=== PATIENT | female | born 2000 | race Caucasian/White ===

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

== ENCOUNTER → 2019-04-23 | Outpatient (CLI) | payer BC ==
--- NOTE | 2019-04-23 15:32 | XR ---
EXAMINATION TYPE: XR chest 2V DATE OF EXAM: 04/23/2019 COMPARISON: Chest x-ray August 28, 2003. HISTORY: History of asthma with shortness of breath. TECHNIQUE: Frontal and lateral views of the chest are obtained. FINDINGS: There is no focal air space opacity, pleural effusion, or pneumothorax seen. The cardiac silhouette size is within normal limits. The osseous structures are intact. IMPRESSION: No acute cardiopulmonary process.
== END | disposition home or self-care (01) ==
LOC: RADXRMAIN 15:09
PROVIDERS: ATTEND Family Medicine
DX: J45.30 Mild persistent asthma, uncomplicated (principal)
CPT/HCPCS: 71046

== ENCOUNTER 2019-08-08 22:52 | Emergency (ER) | payer BC ==
--- NOTE | 2019-08-08 23:13 | ED ---
General Adult HPI - General Chief complaint: Shortness of Breath Stated complaint: AMANDA Time Seen by Provider: 08/08/19 23:12 Source: patient Mode of arrival: ambulatory Limitations: no limitations - History of Present Illness Initial comments: Patient is a 18-year-old female who presents the ER today with multiple vague complaints. Patient reports that she thinks she has a history of asthma because she used breathing treatments as a child. She states that she still has a daily inhaler as well as a rescue inhaler and has been compliant with these she also has a nebulizer at home. Patient states that today she felt like she was wheezing a little bit more the usual so she used her inhaler which she felt only improved her symptoms slightly and made her heart race. Patient also states that she receives Depogen injections for control and this is resulted and irregular. She reports she had an 8 day period in May and was given Provera which she has been taking daily since then. She states she has not had a period since then and has been sexually active so is concerned she may be . Patient also states that she's mostly up for work by 3 AM to get work on time and will need a work note because it's arty late at night. - Related Data Previous Rx's Medication Instructions Recorded predniSONE [Deltasone] 40 mg PO DAILY #10 tab 08/09/19 Allergies Allergy/AdvReac Type Severity Reaction Status Date / Time cyclobenzaprine Allergy Rash/Hives Verified 08/08/19 22:57 [From Flexeril] Review of Systems ROS Statement: Those systems with pertinent positive or pertinent negative responses have been documented in the HPI. ROS Other: All systems not noted in ROS Statement are negative. Past Medical History Past Medical History: Asthma History of Any Multi-Drug Resistant Organisms: None Reported Past Surgical History: No Surgical Hx Reported Past Psychological History: Anxiety, Depression Smoking Status: Never smoker Past Alcohol Use History: None Reported Past Drug Use History: None Reported General Exam - General Exam Comments Initial Comments: Physical Exam GENERAL: Patient is well-developed and well-nourished. Patient is nontoxic and well- hydrated and is in no distress. HENT: Normocephalic, Atraumatic. EYES: PERRL, EOMI PULMONARY: Have expiratory wheezing more pronounced in the right than left CARDIOVASCULAR: There is a regular rate and rhythm without any murmurs gallops or rubs. ABDOMEN: Soft and nontender with normal bowel sounds. SKIN: Skin is clear with no lesions or rashes and otherwise unremarkable. : Deferred NEUROLOGIC: Patient is alert and oriented x3. Moving all extremities spontaneously MUSCULOSKELETAL: Normal extremities with adequate strength and full range of motion. No lower extremity swelling or edema. No calf tenderness. PSYCHIATRIC: Normal psychiatric evaluation. Limitations: no limitations Course Vital Signs 08/08/19 08/08/19 08/08/19 22:58 23:11 23:18 Temperature 98.0 F 97.7 F Pulse Rate 93 89 Respiratory 20 20 16 Rate Blood Pressure 132/82 129/85 O2 Sat by Pulse 98 100 Oximetry 08/09/19 08/09/19 08/09/19 00:07 00:13 01:02 Temperature 98.8 F Pulse Rate 73 71 75 Respiratory 16 16 18 Rate Blood Pressure 109/73 O2 Sat by Pulse 99 Oximetry Medical Decision Making - Medical Decision Making Patient was seen and evaluated history was obtained from patient history and physical exam noted by unremarkable patient has mild expiratory wheezing she is also concerned about her missed periods despite being on Depakote. A urine test was obtained and was negative. Chest x-ray had no acute findings patient received a DuoNeb and was feeling better will be discharged home with oral steroids. All questions pertaining care were answered return parameters discussed patient discharged home in stable condition. - Lab Data Lab Results 08/08/19 Range/Units 23:15 Urine HCG, Qual Not Detected (Not Detectd) Disposition Clinical Impression: Wheezing, Irregular periods Disposition: HOME SELF-CARE Condition: Stable Prescriptions: predniSONE [Deltasone] 40 mg PO DAILY #10 tab Is patient prescribed a controlled substance at d/c from ED?: No Referrals: Ricardo Mayen MD [Primary Care Provider] - 1-2 days
--- NOTE | 2019-08-08 23:53 | XR ---
EXAMINATION TYPE: XR chest 2V DATE OF EXAM: 08/08/2019 COMPARISON: 04/23/2019 HISTORY: Asthma TECHNIQUE: FINDINGS: Heart and mediastinum are normal. Lungs are clear. Diaphragm is normal. Bony thorax appears normal. IMPRESSION: Normal chest
[2019-08-08] MEDS ORDERED: IPRATROPIUM-ALBUTEROL 3 ML NEB INHALATION STA (23:55)
[2019-08-09 01:03] VITALS: BP 109/73; PULSE 75; RESP 18; TEMP 98.8
== END 2019-08-09 01:03 | disposition home or self-care (01) ==
LOC: EC 22:52
DX: R06.2 Wheezing (principal); N92.6 Irregular menstruation, unspecified; Z88.8 Allergy status to other drugs, medicaments and biological substances
CPT/HCPCS: 71046; 81025; 94640; 99285

== ENCOUNTER 2019-11-20 23:53 | Emergency (ER) | payer BC ==
[2019-11-21] MEDS ORDERED: SODIUM CHLORIDE 0.9% 1,000 ML IV STA ×2 (00:35)
[2019-11-21] MEDS ORDERED: SODIUM CHLORIDE 0.9% 500 ML 500 ML IV STA (00:35)
[2019-11-21] MEDS ORDERED: ONDANSETRON 4 MG/2 ML VIAL IVP STA (00:35)
[2019-11-21] MEDS ORDERED: DIAZEPAM 5 MG/ML 2 ML INJ IVP STA (00:36)
[2019-11-21] MEDS ORDERED: PANTOPRAZOLE 40 MG/10 ML VIAL IVP STA (00:36)
--- NOTE | 2019-11-21 00:37 | ED ---
Neck Injury/Pain HPI - General Chief Complaint: Nausea/Vomiting/Diarrhea Stated Complaint: SOB, vomiting Time Seen by Provider: 11/21/19 00:15 Source: RN notes reviewed, old records reviewed Mode of arrival: wheelchair Limitations: no limitations - History of Present Illness MD Complaint: neck pain -: days(s) Place: home Radiation: chest Severity: moderate Severity scale (1-10): 6 Quality: sharp Consistency: constant Improves With: none Worsens With: none Context: sore throat Associated Symptoms: none Treatments Prior to Arrival: none - Related Data Previous Rx's Medication Instructions Recorded predniSONE [Deltasone] 40 mg PO DAILY #10 tab 08/09/19 Allergies Allergy/AdvReac Type Severity Reaction Status Date / Time cyclobenzaprine Allergy Rash/Hives Verified 11/21/19 00:09 [From Flexeril] Review of Systems ROS Statement: Those systems with pertinent positive or pertinent negative responses have been documented in the HPI. ROS Other: All systems not noted in ROS Statement are negative. Past Medical History Past Medical History: Asthma, Thyroid Disorder Additional Past Medical History / Comment(s): occipital neuralgia History of Any Multi-Drug Resistant Organisms: None Reported Past Surgical History: No Surgical Hx Reported Past Psychological History: Anxiety, Depression Smoking Status: Light tobacco smoker Past Alcohol Use History: None Reported Past Drug Use History: Marijuana General Exam Limitations: no limitations General appearance: alert, in no apparent distress, anxious Head exam: Present: atraumatic, normocephalic, normal inspection Eye exam: Present: normal appearance, PERRL, EOMI. Absent: scleral icterus, conjunctival injection, periorbital swelling ENT exam: Present: normal exam, mucous membranes moist Neck exam: Present: normal inspection. Absent: tenderness, meningismus, l ymphadenopathy Respiratory exam: Present: normal lung sounds bilaterally. Absent: respiratory distress, wheezes, rales, rhonchi, stridor Cardiovascular Exam: Present: normal rhythm, tachycardia, normal heart sounds. Absent: systolic murmur, diastolic murmur, rubs, gallop, clicks GI/Abdominal exam: Present: soft, normal bowel sounds. Absent: distended, tenderness, guarding, rebound, rigid Extremities exam: Present: normal inspection, full ROM, normal capillary refill. Absent: tenderness, pedal edema, joint swelling, calf tenderness Back exam: Present: normal inspection Neurological exam: Present: alert, oriented X3, CN II-XII intact Psychiatric exam: Present: normal affect, normal mood Skin exam: Present: warm, dry, intact, normal color. Absent: rash Course Vital Signs 11/21/19 11/21/19 00:04 02:00 Temperature 98.3 F Pulse Rate 110 H 78 Respiratory 18 14 Rate Blood Pressure 128/88 106/60 O2 Sat by Pulse 100 97 Oximetry Medical Decision Making - Lab Data Result diagrams: 11/21/19 01:17 11/21/19 01:17 Lab Results 11/21/19 11/21/19 Range/Units 01:17 01:17 WBC 7.6 (4.0-11.0) k/uL RBC 4.78 (3.80-5.40) m/uL Hgb 14.5 (11.4-16.0) gm/dL Hct 44.8 (34.0-46.0) % MCV 93.8 (80.0-100.0) fL MCH 30.4 (25.0-35.0) pg MCHC 32.4 (31.0-37.0) g/dL RDW 12.9 (11.5-15.5) % Plt Count 192 (150-450) k/uL Neutrophils % 75 % Lymphocytes % 18 % Monocytes % 5 % Eosinophils % 1 % Basophils % 0 % Neutrophils # 5.7 (1.3-7.7) k/uL Lymphocytes # 1.3 (1.0-4.8) k/uL Monocytes # 0.4 (0-1.0) k/uL Eosinophils # 0.1 (0-0.7) k/uL Basophils # 0.0 (0-0.2) k/uL Sodium 140 (137-145) mmol/L Potassium 3.7 (3.5-5.1) mmol/L Chloride 108 H (98-107) mmol/L Carbon Dioxide 23 (22-30) mmol/L Anion Gap 9 mmol/L BUN 10 (7-17) mg/dL Creatinine 0.69 (0.52-1.04) mg/dL Est GFR (CKD-EPI)AfAm >90 (>60 ml/min/1.73 sqM) Est GFR (CKD-EPI)NonAf >90 (>60 ml/min/1.73 sqM) Glucose 128 H (74-99) mg/dL Calcium 9.1 (8.4-10.2) mg/dL Phosphorus 3.3 (2.5-4.5) mg/dL Magnesium 2.0 (1.6-2.3) mg/dL Total Bilirubin 0.6 (0.2-1.3) mg/dL AST 30 (14-36) U/L ALT 24 (4-34) U/L Alkaline Phosphatase 67 (38-126) U/L Total Protein 7.0 (6.3-8.2) g/dL Albumin 4.2 (3.5-5.0) g/dL TSH 3.590 (0.465-4.680) mIU/L Free T3 pg/mL 4.3 (2.8-5.3) pg/ml - EKG Data -: EKG Interpreted by Me (EKG shows normal sinus a rate of 74, DE 240, QRS 82, QTC 424) Disposition Clinical Impression: Sore throat, Neck pain Condition: Good Instructions (If sedation given, give patient instructions): Neck Pain (ED) Is patient prescribed a controlled substance at d/c from ED?: No Referrals: Ricardo Mayen MD [Primary Care Provider] - 1-2 days
[2019-11-21 01:28] LABS: Basophils % (A) 0 %; Eosinophils # (A) 0.1 k/uL (0-0.7); Eosinophils % (A) 1 %; HCT 44.8 % (34.0-46.0); HGB 14.5 gm/dL (11.4-16.0); Lymphocytes # (A) 1.3 k/uL (1.0-4.8); Lymphocytes % (A) 18 %; MCH 30.4 pg (25.0-35.0); MCHC 32.4 g/dL (31.0-37.0); MCV 93.8 fL (80.0-100.0); Mean Platelet Volume 7.9; Monocytes # (A) 0.4 k/uL (0-1.0); Monocytes % (A) 5 %; Neutrophils # (A) 5.7 k/uL (1.3-7.7); Neutrophils % (A) 75 %; Platelet Count 192 k/uL (150-450); RBC 4.78 m/uL (3.80-5.40); RDW 12.9 % (11.5-15.5); WBC 7.6 k/uL (4.0-11.0)
[2019-11-21 01:38] LABS: ALT 24 U/L (4-34); AST 30 U/L (14-36); African American GFR (CKD) >90 (>60 ml/min/1.73 sqM); Albumin 4.2 g/dL (3.5-5.0); Alkaline Phosphatase 67 U/L (38-126); Anion Gap 9 mmol/L; Blood Urea Nitrogen 10 mg/dL (7-17); Calcium 9.1 mg/dL (8.4-10.2); Carbon Dioxide 23 mmol/L (22-30); Chloride 108 mmol/L (98-107); Glucose 128 mg/dL (74-99); Non-African American GFR(CKD) >90 (>60 ml/min/1.73 sqM); Phosphorus 3.3 mg/dL (2.5-4.5); Potassium 3.7 mmol/L (3.5-5.1); Sodium 140 mmol/L (137-145); Total Bilirubin 0.6 mg/dL (0.2-1.3)
--- NOTE | 2019-11-21 01:38 | XR ---
EXAMINATION TYPE: XR chest 1V DATE OF EXAM: 11/21/2019 COMPARISON: August 08, 2019 HISTORY: Thyroiditis. Difficulty breathing. TECHNIQUE: Single view FINDINGS: Heart and mediastinum are normal. Lungs are clear of infiltrate. There are chest leads. Costophrenic angles are clear. Bony thorax is intact. IMPRESSION: No active cardiopulmonary disease. Normal heart. No change.
--- NOTE | 2019-11-21 01:41 | XR ---
EXAMINATION TYPE: XR soft tissue neck DATE OF EXAM: 11/21/2019 COMPARISON: NONE HISTORY: Thyroiditis. TECHNIQUE: 2 views FINDINGS: Epiglottis is normal. Prevertebral soft tissues appear normal. Tonsils and adenoids are nor mal. Subglottic trachea appears normal. IMPRESSION: Normal cervical soft tissue exam.
--- NOTE | 2019-11-21 02:22 | US ---
EXAMINATION TYPE: US thyroid st tissue head/neck DATE OF EXAM: 11/21/2019 COMPARISON: NONE CLINICAL HISTORY: thyroiditis. thyroiditis GLAND SIZE: Right Lobe: 5.1 x 1.7 x 2.0 cm Overall Parenchyma: heterogenous Left Lobe: 4.5 x 1.7 x 1.7 cm Overall Parenchyma: heterogeneous Isthmus Thickness: 0.5 cm NODULES RIGHT: # of nodules measured on right: 0 LEFT: # of nodules measured on left: 0 ISTHMUS: # of nodules measured in the isthmus: 0 Bilateral neck scanned, normal appearing lymph nodes noted IMPRESSION: Negative thyroid sonogram. No discrete mass.
[2019-11-21 02:42] VITALS: BP 99/58; PULSE 102; RESP 16; TEMP 98.1
== END 2019-11-21 02:53 | disposition home or self-care (01) ==
LOC: EC 23:53
DX: J02.9 Acute pharyngitis, unspecified (principal); M54.2 Cervicalgia; F17.200 Nicotine dependence, unspecified, uncomplicated; Z88.8 Allergy status to other drugs, medicaments and biological substances
CPT/HCPCS: 36415; 84481; 80053; 84443; 83735; 84100; 85025; 86800; 70360; 71045; 76536; 99285; 96374; 96375 ×2; 96361 ×2; J3360; J2405; C9113

== ENCOUNTER 2019-11-24 23:50 | Emergency (ER) | payer BC ==
[2019-11-24] MEDS ORDERED: SODIUM CHLORIDE 0.9% 500 ML 500 ML IV STA (23:57)
[2019-11-24] MEDS ORDERED: methylPREDNISolone SOD SUCCI 125 MG/2 ML VIAL IV STA (23:57)
[2019-11-25] VITALS: TEMP 97.4
--- NOTE | 2019-11-25 00:14 | ED ---
General Adult HPI - General Chief complaint: Allergic Reaction Stated complaint: Allergic Reaction Time Seen by Provider: 11/24/19 23:56 Source: patient, EMS, RN notes reviewed, old records reviewed Mode of arrival: EMS Limitations: no limitations - History of Present Illness Initial comments: 19-year-old female patient presents to ED for evaluation of rash which occurred earlier today. Patient reports that prior to present to emergency department she was walking, her face became flushed, she began to develop hives on her cheeks, she felt lightheaded, she felt very hot, she had a few dry heaves. Patient reports that she then called EMS and was transported to Hospital. Her epigastrium given Zofran as well as Benadryl and a small fluid bolus. Patient was seen in this emergency department 4 days ago for similar complaints. Denies any new medications. Denies any other complaints. At time of evaluation patient denies any chest pain shortness of breath. The rash is resolved. She states that she is feeling well. Systemic: Pt denies fatigue, fever/chills. Pt denies weakness, night sweats, weight loss. Neuro: Pt denies headache, visual disturbances, syncope or pre-syncope. HEENT: Pt denies ocular discharge or irritation, otalgia, rhinorrhea, pharyngitis or notable lymphadenopathy. Cardiopulmonary: Pt denies chest pain, SOB, heart palpitations, dyspnea on exertion. Abdominal/GI: Pt denies abdominal pain, n/v/d. : Pt denies dysuria, burning w/ urination, frequency/urgency. Denies new onset urinary or bowel incontinence. MSK: Pt denies myalgia, loss of strength or function in extremities. Neuro: Pt denies new onset weakness, paresthesias. - Related Data Previous Rx's Medication Instructions Recorded predniSONE [Deltasone] 40 mg PO DAILY #10 tab 08/09/19 EPINEPHrine (Auto Inject) [Epipen] 0.3 mg IM ONCE PRN #2 pen 11/25/19 predniSONE 50 mg PO DAILY 4 Days #4 tab 11/25/19 Allergies Allergy/AdvReac Type Severity Reaction Status Date / Time cyclobenzaprine Allergy Rash/Hives Verified 11/25/19 00:00 [From Flexeril] Review of Systems ROS Statement: Those systems with pertinent positive or pertinent negative responses have been documented in the HPI. ROS Other: All systems not noted in ROS Statement are negative. Past Medical History Past Medical History: Asthma, Thyroid Disorder Additional Past Medical History / Comment(s): occipital neuralgia History of Any Multi-Drug Resistant Organisms: None Reported Past Surgical History: No Surgical Hx Reported Past Psychological History: Anxiety, Depression Smoking Status: Current every day smoker Past Alcohol Use History: None Reported Past Drug Use History: Marijuana General Exam - General Exam Comments Initial Comments: Constitutional: NAD, AOX3, Pt has pleasant affect. HEENT: NC/AT, trachea midline, neck supple, no lymphadenopathy. Posterior pharynx non erythematous, without exudates. External ears appear normal, without discharge. Mucous membranes moist. Eyes PERRLA, EOM intact. There is no scleral icterus. No pallor noted. No angioedema, no posterior pharyngeal edema. Cardiopulmonary: RRR, no murmurs, rubs or gallops, no JVD noted. Lungs CTAB in anterior and posterior sorto. No peripheral edema. Abdominal exam: Abdomen soft and non-distended. Abdomen non-tender to palpation in all 4 quadrants. Bowel sounds active in LLQ. No hepatosplenomegaly. No ecchymosis Neuro: CN II-XII grossly intact. No nuchal rigidity. No raccon eyes, no garcia sign, no hemotympanum. No cervical spinal tenderness. MSK: No posterior calf tenderness bilaterally, homans sign negative bilaterally. Posterior tibialis and radial pulse +2 bilaterally. Sensation intact in upper and lower extremities. Full active ROM in upper and lower extremities, 5/5 stregnth. Limitations: no limitations Course Vital Signs 11/24/19 11/25/19 23:55 01:00 Temperature 97.4 F L Pulse Rate 94 70 Respiratory 20 18 Rate Blood Pressure 127/88 122/72 O2 Sat by Pulse 99 98 Oximetry Medical Decision Making - Medical Decision Making 19-year-old female patient presents to ED for evaluation of rash which occurred earlier today. Patient reports that prior to present to emergency department she was walking, her face became flushed, she began to develop hives on her cheeks, she felt lightheaded, she felt very hot, she had a few dry heaves. Patient reports that she then called EMS and was transported to Hospital. Her epigastrium given Zofran as well as Benadryl and a small fluid bolus. Patient was seen in this emergency department 4 days ago for similar complaints. Denies any new medications. Denies any other complaints. At time of evaluation patient denies any chest pain shortness of breath. The rash is resolved. She states that she is feeling well. Patient vital signs are stable, afebrile. Physical exam did not display acute pathology. No rash, angioedema, posterior pharyngeal edema noted. Patient is asymptomatic. Patient will be treated with a steroid treatment and rx epipen for possible allergic reaction. Pt will follow-up with primary care friends tomorrow and return to ER if condition worsens. Case discussed with Dr. Aguilera. - Lab Data Result diagrams: 11/25/19 00:06 11/25/19 00:06 Lab Results 11/25/19 11/25/19 11/25/19 Range/Units 00:06 00:06 00:06 WBC 9.1 (4.0-11.0) k/uL RBC 4.96 (3.80-5.40) m/uL Hgb 15.0 (11.4-16.0) gm/dL Hct 45.4 (34.0-46.0) % MCV 91.4 (80.0-100.0) fL MCH 30.2 (25.0-35.0) pg MCHC 33.1 (31.0-37.0) g/dL RDW 12.6 (11.5-15.5) % Plt Count 203 (150-450) k/uL Neutrophils % 65 % Lymphocytes % 29 % Monocytes % 4 % Eosinophils % 1 % Basophils % 1 % Neutrophils # 5.9 (1.3-7.7) k/uL Lymphocytes # 2.6 (1.0-4.8) k/uL Monocytes # 0.4 (0-1.0) k/uL Eosinophils # 0.1 (0-0.7) k/uL Basophils # 0.1 (0-0.2) k/uL PT 10.8 (9.0-12.0) sec INR 1.1 (<1.2) APTT 24.5 (22.0-30.0) sec Sodium 137 (137-145) mmol/L Potassium 3.5 (3.5-5.1) mmol/L Chloride 103 (98-107) mmol/L Carbon Dioxide 25 (22-30) mmol/L Anion Gap 9 mmol/L BUN 9 (7-17) mg/dL Creatinine 0.66 (0.52-1.04) mg/dL Est GFR (CKD-EPI)AfAm >90 (>60 ml/min/1.73 sqM) Est GFR (CKD-EPI)NonAf >90 (>60 ml/min/1.73 sqM) Glucose 107 H (74-99) mg/dL Plasma Lactic Acid Bharathi (0.7-2.0) mmol/L Calcium 9.7 (8.4-10.2) mg/dL Magnesium 1.7 (1.6-2.3) mg/dL Total Bilirubin 0.9 (0.2-1.3) mg/dL AST 27 (14-36) U/L ALT 22 (4-34) U/L Alkaline Phosphatase 76 (38-126) U/L Total Protein 7.6 (6.3-8.2) g/dL Albumin 4.7 (3.5-5.0) g/dL Urine Color Urine Appearance (Clear) Urine pH (5.0-8.0) Ur Specific [place] (1.001-1.035) Urine Protein (Negative) Urine Glucose (UA) (Negative) Urine Ketones (Negative) Urine Blood (Negative) Urine Nitrite (Negative) Urine Bilirubin (Negative) Urine Urobilinogen (<2.0) mg/dL Ur Leukocyte Esterase (Negative) Urine RBC (0-5) /hpf Urine WBC (0-5) /hpf Ur Squamous Epith Cells (0-4) /hpf Urine Mucus (None) /hpf Urine HCG, Qual (Not Detectd) 11/25/19 11/25/19 11/25/19 Range/Units 00:06 01:20 01:20 WBC (4.0-11.0) k/uL RBC (3.80-5.40) m/uL Hgb (11.4-16.0) gm/dL Hct (34.0-46.0) % MCV (80.0-100.0) fL MCH (25.0-35.0) pg MCHC (31.0-37.0) g/dL RDW (11.5-15.5) % Plt Count (150-450) k/uL Neutrophils % % Lymphocytes % % Monocytes % % Eosinophils % % Basophils % % Neutrophils # (1.3-7.7) k/uL Lymphocytes # (1.0-4.8) k/uL Monocytes # (0-1.0) k/uL Eosinophils # (0-0.7) k/uL Basophils # (0-0.2) k/uL PT (9.0-12.0) sec INR (<1.2) APTT (22.0-30.0) sec Sodium (137-145) mmol/L Potassium (3.5-5.1) mmol/L Chloride (98-107) mmol/L Carbon Dioxide (22-30) mmol/L Anion Gap mmol/L BUN (7-17) mg/dL Creatinine (0.52-1.04) mg/dL Est GFR (CKD-EPI)AfAm (>60 ml/min/1.73 sqM) Est GFR (CKD-EPI)NonAf (>60 ml/min/1.73 sqM) Glucose (74-99) mg/dL Plasma Lactic Acid Bharathi 1.2 (0.7-2.0) mmol/L Calcium (8.4-10.2) mg/dL Magnesium (1.6-2.3) mg/dL Total Bilirubin (0.2-1.3) mg/dL AST (14-36) U/L ALT (4-34) U/L Alkaline Phosphatase (38-126) U/L Total Protein (6.3-8.2) g/dL Albumin (3.5-5.0) g/dL Urine Color Yellow Urine Appearance Clear (Clear) Urine pH 5.5 (5.0-8.0) Ur Specific [place] 1.013 (1.001-1.035) Urine Protein Negative (Negative) Urine Glucose (UA) Negative (Negative) Urine Ketones Trace H (Negative) Urine Blood Moderate H (Negative) Urine Nitrite Negative (Negative) Urine Bilirubin Negative (Negative) Urine Urobilinogen <2.0 (<2.0) mg/dL Ur Leukocyte Esterase Negative (Negative) Urine RBC 10 H (0-5) /hpf Urine WBC <1 (0-5) /hpf Ur Squamous Epith Cells <1 (0-4) /hpf Urine Mucus Rare H (None) /hpf Urine HCG, Qual Not Detected (Not Detectd) - EKG Data -: EKG Interpreted by Me (and Dr. Aguilera ) EKG Comments: Ventricular rate 72, MO interval 134, QRS 84, QT/QTC 302/429. NSR. normal ekg, no concern for acute ischemia. Disposition Clinical Impression: Allergic reaction Disposition: HOME SELF-CARE Condition: Stable Instructions (If sedation given, give patient instructions): General Allergic Reaction (ED) Additional Instructions: Follow-up with primary care provider tomorrow. Take medications as directed, return to ER if condition worsens. Prescriptions: EPINEPHrine (Auto Inject) [Epipen] 0.3 mg IM ONCE PRN #2 pen PRN Reason: Anaphylaxis predniSONE 50 mg PO DAILY 4 Days #4 tab Is patient prescribed a controlled substance at d/c from ED?: No Referrals: Ricardo Mayen MD [Primary Care Provider] - 1-2 days
[2019-11-25 00:20] LABS: Basophils # (A) 0.1 k/uL (0-0.2); Basophils % (A) 1 %; Eosinophils # (A) 0.1 k/uL (0-0.7); Eosinophils % (A) 1 %; HCT 45.4 % (34.0-46.0); Lymphocytes # (A) 2.6 k/uL (1.0-4.8); Lymphocytes % (A) 29 %; MCH 30.2 pg (25.0-35.0); MCHC 33.1 g/dL (31.0-37.0); MCV 91.4 fL (80.0-100.0); Mean Platelet Volume 7.8; Monocytes # (A) 0.4 k/uL (0-1.0); Monocytes % (A) 4 %; Neutrophils # (A) 5.9 k/uL (1.3-7.7); Neutrophils % (A) 65 %; Platelet Count 203 k/uL (150-450); RBC 4.96 m/uL (3.80-5.40); RDW 12.6 % (11.5-15.5); WBC 9.1 k/uL (4.0-11.0)
[2019-11-25 00:28] LABS: INR 1.1 (<1.2); Partial Thromboplastin Time 24.5 sec (22.0-30.0); Prothrombin Time 10.8 sec (9.0-12.0)
[2019-11-25 00:36] LABS: ALT 22 U/L (4-34); AST 27 U/L (14-36); African American GFR (CKD) >90 (>60 ml/min/1.73 sqM); Albumin 4.7 g/dL (3.5-5.0); Alkaline Phosphatase 76 U/L (38-126); Anion Gap 9 mmol/L; Blood Urea Nitrogen 9 mg/dL (7-17); Calcium 9.7 mg/dL (8.4-10.2); Carbon Dioxide 25 mmol/L (22-30); Chloride 103 mmol/L (98-107); Glucose 107 mg/dL (74-99); Magnesium 1.7 mg/dL (1.6-2.3); Non-African American GFR(CKD) >90 (>60 ml/min/1.73 sqM); Potassium 3.5 mmol/L (3.5-5.1); Sodium 137 mmol/L (137-145); Total Bilirubin 0.9 mg/dL (0.2-1.3); Total Protein 7.6 g/dL (6.3-8.2)
[2019-11-25 01:26] VITALS: RESP 18
[2019-11-25 01:51] LABS: Appearance,Urine Clear (Clear); Bilirubin,Urine Negative (Negative); Blood,Urine Moderate (Negative); Color,Urine Yellow; Glucose,Urine (UA) Negative (Negative); Ketones,Urine Trace (Negative); Leukocyte Esterase,Urine Negative (Negative); Mucus,Urine Rare /hpf; Nitrite,Urine Negative (Negative); PH, Urine 5.5 (5.0-8.0); Protein,Urine Negative (Negative); RBC,Urine 10 /hpf (0-5); Specific Gravity,Urine 1.013 (1.001-1.035); Squamous Epithelial Cell,Urine <1 /hpf (0-4); Urobilinogen,Urine <2.0 mg/dL (<2.0); WBC,Urine <1 /hpf (0-5)
[2019-11-25 02:35] VITALS: BP 122/70; PULSE 72
== END 2019-11-25 02:34 | disposition home or self-care (01) ==
LOC: EC 23:50
DX: T78.40XA Allergy, unspecified, initial encounter (principal); R42 Dizziness and giddiness; F17.200 Nicotine dependence, unspecified, uncomplicated; Z88.8 Allergy status to other drugs, medicaments and biological substances
CPT/HCPCS: 36415; 93005; 80053; 83605; 83735; 85025; 85610; 85730; 81001; 81025; 99284; 96374; 96361; J2930

== ENCOUNTER → 2019-12-22 | Outpatient (CLI) | payer BC | END | disposition home or self-care (01) | LOC: LABWHC1 12:11 | PROVIDERS: ATTEND Internal Medicine Endocrinology, Diabetes & Metabolism | DX: R53.83 Other fatigue (principal) | CPT/HCPCS: 36415; 82024; 82533 ==

== ENCOUNTER → 2020-02-08 | Outpatient (CLI) | payer BC ==
--- NOTE | 2020-02-09 07:16 | MR ---
EXAMINATION TYPE: MR knee RT wo con DATE OF EXAM: 02/08/2020 COMPARISON: NONE HISTORY: Right knee joint effusion per order. Pain locking and swelling for 1.5 years since traumatic fall injury per patient. TECHNIQUE: Multiplanar, multisequence images of the knee is performed without IV contrast. FINDINGS: MEDIAL MENISCUS: Anterior and posterior horns are intact without tear. LATERAL MENISCUS: Anterior and posterior horns are intact without tear. CRUCIATE LIGAMENTS: The anterior and posterior cruciate ligaments are intact and unremarkable. COLLATERAL LIGAMENTS: The medial collateral ligament and lateral collateral ligament complex are inta ct and unremarkable. EXTENSOR MECHANISM: Visualized quadriceps and patellar tendons are intact. EFFUSION: No significant suprapatellar joint effusion. POPLITEAL CYST: No popliteal/quintero cyst. TRICOMPARTMENT SPACES: Tricompartment joint spaces are preserved. No significant spurring is seen. CARTILAGE: Tricompartmental articular cartilage is maintained. BONE MARROW SIGNAL: No focal abnormal marrow signal is appreciated. OTHER: No additional significant abnormality is appreciated. IMPRESSION: No meniscal or ligamentous tear. No significant joint effusion. Unremarkable study.
== END | disposition home or self-care (01) ==
LOC: RADMRIMAIN 15:41
PROVIDERS: ATTEND Family Medicine
DX: M25.469 Effusion, unspecified knee (principal)

== ENCOUNTER 2020-04-10 21:24 | Emergency (ER) | payer BC ==
[2020-04-10 21:30] VITALS: BP 139/84; PULSE 79; RESP 18; TEMP 98.4
[2020-04-10] MEDS ORDERED: ONDANSETRON 4 MG ODT STARTER PACK 2 TAB BTL PO STA (22:14)
--- NOTE | 2020-04-10 22:58 | ED ---
Eye Problem HPI - General Chief complaint: Eye Problems Stated complaint: Headaches Time Seen by Provider: 04/10/20 21:40 Source: patient Mode of arrival: ambulatory Limitations: no limitations - History of Present Illness Initial comments: 19-year-old female presents to the emergency department this evening with complaints of headache, right eye discomfort, and nausea. Patient states she has a history of occipital neuralgia and attributes her symptoms to that diagnosis. Patient states that she has had an intermittent headache that she describes as a pressure that localizes on the top of her head. States her symptoms are also accompanied by right-sided facial tingling and feels as if the right side of her face was swollen. States she has had an increased frequency of floaters in her right eye but has not been seen by the eye doctor for this. Patient also states she is nauseous and acknowledges possible . Patient states she came to the emergency department this evening because she noticed her right pupil expanding and nanette and she was concerned that this was unusual in the presence of her symptoms. Patient denies any recent rash, fever, chills, cough, shortness of breath, chest pain, abdominal pain, diarrhea, constipation, back pain, numbness, dizziness, weakness, hematuria, dysuria, urinary urgency, urinary frequency, or any other complaints. - Related Data Previous Rx's Medication Instructions Recorded predniSONE [Deltasone] 40 mg PO DAILY #10 tab 08/09/19 EPINEPHrine (Auto Inject) [Epipen] 0.3 mg IM ONCE PRN #2 pen 11/25/19 predniSONE 50 mg PO DAILY 4 Days #4 tab 11/25/19 Allergies Allergy/AdvReac Type Severity Reaction Status Date / Time cyclobenzaprine Allergy Rash/Hives Verified 04/10/20 21:30 [From Flexeril] Review of Systems ROS Statement: Those systems with pertinent positive or pertinent negative responses have been documented in the HPI. ROS Other: All systems not noted in ROS Statement are negative. Past Medical History Past Medical History: Asthma, Thyroid Disorder Additional Past Medical History / Comment(s): occipital neuralgia History of Any Multi-Drug Resistant Organisms: None Reported Past Surgical History: No Surgical Hx Reported Past Psychological History: Anxiety, Depression Smoking Status: Vaper Past Alcohol Use History: None Reported Past Drug Use History: Marijuana General Exam Limitations: no limitations (Well-developed, well-nourished female in no acute distress. Presenting vitals include temperature 98.4F, pulse 79, respirations 18, blood pressure 139/63-[id number] pulse ox 97% on room air.) General appearance: alert, in no apparent distress Head exam: Present: atraumatic, normocephalic, normal inspection Eye exam: Present: normal appearance, PERRL, EOMI. Absent: scleral icterus, conjunctival injection, periorbital swelling Pupils: Present: normal accommodation Expanded Pupils: Regular, Round: Bilateral, Reactive: Bilateral Neck exam: Present: normal inspection. Absent: tenderness, meningismus, lymphadenopathy Respiratory exam: Present: normal lung sounds bilaterally. Absent: respiratory distress, wheezes, rales, rhonchi, stridor Cardiovascular Exam: Present: regular rate, normal rhythm, normal heart sounds. Absent: systolic murmur, diastolic murmur, rubs, gallop, clicks GI/Abdominal exam: Present: soft, normal bowel sounds. Absent: distended, tenderness, guarding, rebound, rigid Neurological exam: Present: alert, oriented X3, CN II-XII intact Expanded Speech: Present: fluid speech Cranial nerves: EOM's Intact: Normal, Facial Palsy with Forehead Movement: Normal Eye Response: (4) open spontaneously Motor Response: (6) obeys commands Verbal Response: (5) oriented Psychiatric exam: Present: normal affect, normal mood Skin exam: Present: warm, dry, intact, normal color. Absent: rash Course Vital Signs 04/10/20 21:25 Temperature 98.4 F Pulse Rate 79 Respiratory 18 Rate Blood Pressure 139/84 O2 Sat by Pulse 97 Oximetry Medical Decision Making - Medical Decision Making 19-year-old female presents to the emergency department this evening with complaints of symptoms she attributes to occipital neuralgia. Reports headache she describes as a pressure located on the top of her head. Also complains of right eye changes she describes as an expanding and annette pupil which she had never noticed before, as well as an increased frequency of floaters. States the right side of her face feels tingly and swollen though no focal neuro deficits can be appreciated. Patient also complains of nausea and is spitting up small amounts of clear liquid. Patient was given 4 mg of Zofran by mouth and strongly encouraged follow-up with both neurology and ophthalmology for further evaluation and treatment of these symptoms. Patient also encouraged to establish care with a primary care provider for recheck in 1-2 days. Discussed returning to the emergency department with any headache pain uncontrolled with [id number] medicines as well as significant changes in vision. Patient verbalizes understanding and agrees with this plan. - Lab Data Lab Results 04/10/20 Range/Units 22:30 Urine HCG, Qual Not Detected (Not Detectd) Disposition Clinical Impression: Facial paresthesia, Frequent headaches Disposition: HOME SELF-CARE Condition: Good Instructions (If sedation given, give patient instructions): Paresthesia (ED), General Headache (ED) Additional Instructions: Follow-up with the neurologist and senior architect for further evaluation as soon as possible. Follow-up with your primary care physician for recheck in 1-2 days. Return to the emergency department immediately for any new, worsening, or concerning symptoms. Is patient prescribed a controlled substance at d/c from ED?: No Referrals: Ricardo Mayen MD [Primary Care Provider] - 1-2 days Ghanshyam Hardy MD [Medical Doctor] - 1-2 days Sigifredo Quintero MD [STAFF PHYSICIAN] - 1-2 days Time of Disposition: 22:58
== END 2020-04-10 23:17 | disposition home or self-care (01) ==
LOC: EC 21:24
DX: R20.2 Paresthesia of skin (principal); M54.81 Occipital neuralgia; R11.0 Nausea; F17.290 Nicotine dependence, other tobacco product, uncomplicated; Z88.8 Allergy status to other drugs, medicaments and biological substances
CPT/HCPCS: 99284 ×2; 81025; S0119

== ENCOUNTER → 2020-05-22 | Outpatient (CLI) | payer BC | END | disposition home or self-care (01) | LOC: LABWHC1 12:32 | PROVIDERS: ATTEND Family Medicine | DX: Z20.828 Contact with and (suspected) exposure to other viral communicable diseases (principal) | CPT/HCPCS: U0003; C9803 ==

== ENCOUNTER 2020-08-30 18:27 | Emergency (ER) | payer BC ==
[2020-08-30 18:32] VITALS: TEMP 97.8
[2020-08-30] MEDS ORDERED: DIAZEPAM 5 MG/ML 2 ML INJ IVP STA (18:42)
[2020-08-30] MEDS ORDERED: MECLIZINE 25 MG TAB PO STA (18:42)
--- NOTE | 2020-08-30 18:45 | ED ---
General Adult HPI - General Chief complaint: Dizziness Stated complaint: Light headed, elevated BP Time Seen by Provider: 08/30/20 18:30 Source: patient, RN notes reviewed, old records reviewed Mode of arrival: wheelchair Limitations: no limitations - History of Present Illness Initial comments: This is a 19-year-old female presents emergency department stating that she has been dizzy all day and states that if she sits still shuts her eyes much better. Patient states if she moves her head around she feels extremely nauseated she has yet to vomit. Patient denies any recent fever chills or cough. Patient states the symptoms started at work and continue currently. Patient denies any chest pain palpitations difficulty breathing shortness of breath. Patient states her blood pressure was elevated home and she had a very mild headache. Patient denies any trauma or injury. Patient denies similar symptoms in the past. - Related Data Previous Rx's Medication Instructions Recorded Meclizine [Antivert] 25 mg PO TID #20 tab 08/30/20 Allergies Allergy/AdvReac Type Severity Reaction Status Date / Time cyclobenzaprine Allergy Rash/Hives Verified 08/30/20 20:23 [From Flexeril] Review of Systems ROS Statement: Those systems with pertinent positive or pertinent negative responses have been documented in the HPI. ROS Other: All systems not noted in ROS Statement are negative. Past Medical History Past Medical History: Asthma, Thyroid Disorder Additional Past Medical History / Comment(s): occipital neuralgia History of Any Multi-Drug Resistant Organisms: None Reported Past Surgical History: No Surgical Hx Reported Past Psychological History: Anxiety, Depression Smoking Status: Current every day smoker, Vaper Past Alcohol Use History: None Reported Past Drug Use History: None Reported General Exam - General Exam Comments Initial Comments: GENERAL: Patient is well-developed and well-nourished. Patient is nontoxic and well- hydrated and is in mild distress. ENT: Neck is soft and supple. No significant lymphadenopathy is noted. Oropharynx is clear. Moist mucous membranes. Neck has full range of motion without eliciting any pain. EYES: The sclera were anicteric and conjunctiva were pink and moist. Extraocular movements were intact and pupils were equal round and reactive to light. Eyelids were unremarkable. PULMONARY: Unlabored respirations. Good breath sounds bilaterally. No audible rales rhonchi or wheezing was noted. CARDIOVASCULAR: There is a regular rate and rhythm without any murmurs gallops or rubs. ABDOMEN: Soft and nontender with normal bowel sounds. No palpable organomegaly was noted. There is no palpable pulsatile mass. SKIN: Skin is clear with no lesions or rashes and otherwise unremarkable. NEUROLOGIC: Patient is alert and oriented x3. Cranial nerves II through XII are grossly intact. Motor and sensory are also intact. Normal speech, volume and content. Symmetrical smile. Finger nose testing was normal bilaterally MUSCULOSKELETAL: Normal extremities with adequate strength and full range of motion. No lower extremity swelling or edema. No calf tenderness. LYMPHATICS: No significant lymphadenopathy is noted PSYCHIATRIC: Normal psychiatric evaluation. Limitations: no limitations Course Vital Signs 08/30/20 08/30/20 18:28 19:46 Temperature 97.8 F Pulse Rate 83 73 Respiratory 18 16 Rate Blood Pressure 145/49 124/71 O2 Sat by Pulse 100 100 Oximetry Medical Decision Making - Medical Decision Making EKG shows a a normal sinus rhythm at 63 bpm ME interval 252 QRS is 86 QT interval 418 QTC is 427. Patient's EKG shows no ST segment elevation or depression. Patient received Antivert and Valium while in the emergency department. Patient felt considerably better after this was able to ambulate without much dizziness at all. - Lab Data Result diagrams: 08/30/20 18:59 08/30/20 18:59 Lab Results 08/30/20 08/30/20 08/30/20 Range/Units 18:46 18:59 18:59 WBC 8.1 (4.0-11.0) k/uL RBC 4.68 (3.80-5.40) m/uL Hgb 14.6 (11.4-16.0) gm/dL Hct 42.2 (34.0-46.0) % MCV 90.1 (80.0-100.0) fL MCH 31.2 (25.0-35.0) pg MCHC 34.6 (31.0-37.0) g/dL RDW 12.8 (11.5-15.5) % Plt Count 206 (150-450) k/uL MPV 7.5 Neutrophils % 62 % Lymphocytes % 30 % Monocytes % 5 % Eosinophils % 1 % Basophils % 1 % Neutrophils # 5.0 (1.3-7.7) k/uL Lymphocytes # 2.4 (1.0-4.8) k/uL Monocytes # 0.4 (0-1.0) k/uL Eosinophils # 0.1 (0-0.7) k/uL Basophils # 0.0 (0-0.2) k/uL PT 10.0 (9.0-12.0) sec INR 0.9 (<1.2) APTT 24.7 (22.0-30.0) sec Sodium (137-145) mmol/L Potassium (3.5-5.1) mmol/L Chloride (98-107) mmol/L Carbon Dioxide (22-30) mmol/L Anion Gap mmol/L BUN (7-17) mg/dL Creatinine (0.52-1.04) mg/dL Est GFR (CKD-EPI)AfAm (>60 ml/min/1.73 sqM) Est GFR (CKD-EPI)NonAf (>60 ml/min/1.73 sqM) Glucose (74-99) mg/dL Calcium (8.4-10.2) mg/dL Magnesium (1.6-2.3) mg/dL Total Bilirubin (0.2-1.3) mg/dL AST (14-36) U/L ALT (4-34) U/L Alkaline Phosphatase (38-126) U/L Troponin I (0.000-0.034) ng/mL Total Protein (6.3-8.2) g/dL Albumin (3.5-5.0) g/dL Urine HCG, Qual Not Detected (Not Detectd) 08/30/20 08/30/20 Range/Units 18:59 18:59 WBC (4.0-11.0) k/uL RBC (3.80-5.40) m/uL Hgb (11.4-16.0) gm/dL Hct (34.0-46.0) % MCV (80.0-100.0) fL MCH (25.0-35.0) pg MCHC (31.0-37.0) g/dL RDW (11.5-15.5) % Plt Count (150-450) k/uL MPV Neutrophils % % Lymphocytes % % Monocytes % % Eosinophils % % Basophils % % Neutrophils # (1.3-7.7) k/uL Lymphocytes # (1.0-4.8) k/uL Monocytes # (0-1.0) k/uL Eosinophils # (0-0.7) k/uL Basophils # (0-0.2) k/uL PT (9.0-12.0) sec INR (<1.2) APTT (22.0-30.0) sec Sodium 138 (137-145) mmol/L Potassium 4.1 (3.5-5.1) mmol/L Chloride 105 (98-107) mmol/L Carbon Dioxide 27 (22-30) mmol/L Anion Gap 6 mmol/L BUN 13 (7-17) mg/dL Creatinine 0.71 (0.52-1.04) mg/dL Est GFR (CKD-EPI)AfAm >90 (>60 ml/min/1.73 sqM) Est GFR (CKD-EPI)NonAf >90 (>60 ml/min/1.73 sqM) Glucose 116 H (74-99) mg/dL Calcium 9.5 (8.4-10.2) mg/dL Magnesium 1.9 (1.6-2.3) mg/dL Total Bilirubin 0.4 (0.2-1.3) mg/dL AST 23 (14-36) U/L ALT 18 (4-34) U/L Alkaline Phosphatase 88 (38-126) U/L Troponin I <0.012 (0.000-0.034) ng/mL Total Protein 7.0 (6.3-8.2) g/dL Albumin 4.2 (3.5-5.0) g/dL Urine HCG, Qual (Not Detectd) Disposition Clinical Impression: Vertigo Disposition: HOME SELF-CARE Condition: Good Instructions (If sedation given, give patient instructions): Vertigo (ED) Prescriptions: Meclizine [Antivert] 25 mg PO TID #20 tab Is patient prescribed a controlled substance at d/c from ED?: No Referrals: Ricardo Mayen MD [Primary Care Provider] - 1-2 days
[2020-08-30 19:13] LABS: Basophils % (A) 1 %; Eosinophils # (A) 0.1 k/uL (0-0.7); Eosinophils % (A) 1 %; HCT 42.2 % (34.0-46.0); HGB 14.6 gm/dL (11.4-16.0); Lymphocytes # (A) 2.4 k/uL (1.0-4.8); Lymphocytes % (A) 30 %; MCH 31.2 pg (25.0-35.0); MCHC 34.6 g/dL (31.0-37.0); MCV 90.1 fL (80.0-100.0); Mean Platelet Volume 7.5; Monocytes # (A) 0.4 k/uL (0-1.0); Monocytes % (A) 5 %; Neutrophils % (A) 62 %; Platelet Count 206 k/uL (150-450); RBC 4.68 m/uL (3.80-5.40); RDW 12.8 % (11.5-15.5); WBC 8.1 k/uL (4.0-11.0)
[2020-08-30 19:21] LABS: INR 0.9 (<1.2); Partial Thromboplastin Time 24.7 sec (22.0-30.0)
[2020-08-30 19:28] LABS: ALT 18 U/L (4-34); AST 23 U/L (14-36); African American GFR (CKD) >90 (>60 ml/min/1.73 sqM); Albumin 4.2 g/dL (3.5-5.0); Alkaline Phosphatase 88 U/L (38-126); Anion Gap 6 mmol/L; Blood Urea Nitrogen 13 mg/dL (7-17); Calcium 9.5 mg/dL (8.4-10.2); Carbon Dioxide 27 mmol/L (22-30); Chloride 105 mmol/L (98-107); Glucose 116 mg/dL (74-99); Magnesium 1.9 mg/dL (1.6-2.3); Non-African American GFR(CKD) >90 (>60 ml/min/1.73 sqM); Potassium 4.1 mmol/L (3.5-5.1); Sodium 138 mmol/L (137-145); Total Bilirubin 0.4 mg/dL (0.2-1.3)
[2020-08-30 19:48] VITALS: BP 124/71; PULSE 73; RESP 16
== END 2020-08-30 20:34 | disposition home or self-care (01) ==
LOC: EC 18:27
DX: R42 Dizziness and giddiness (principal); F17.290 Nicotine dependence, other tobacco product, uncomplicated; Z88.8 Allergy status to other drugs, medicaments and biological substances
CPT/HCPCS: 36415; 93005; 80053; 83735; 84484; 85025; 85610; 85730; 81025; 99284; 96374; J3360

== ENCOUNTER 2020-09-21 19:49 | Emergency (ER) | payer BC ==
--- NOTE | 2020-09-21 21:32 | XR ---
EXAMINATION TYPE: XR knee complete RT DATE OF EXAM: 09/21/2020 COMPARISON: NONE HISTORY: Knee pain TECHNIQUE: 3 views FINDINGS: I see no fracture nor dislocation. Joint spaces are normal. There is no sign of knee joint effusion. IMPRESSION: Negative right knee exam.
--- NOTE | 2020-09-21 21:45 | ED ---
Extremity Problem HPI - General Chief complaint: Extremity Problem,Nontraumatic Stated complaint: R knee pain Time Seen by Provider: 09/21/20 21:02 Source: patient, family Mode of arrival: ambulatory Limitations: no limitations - History of Present Illness Initial comments: 19-year-old female presents to emergency department with a chief complaint of ri ght knee and calf pain. Patient reports this started about 2 days ago with no apparent injury or overuse of the leg. Patient reports she feels "pressure" in her right knee that seems to be exacerbated with knee flexion but denies any erythema. Did report mild swelling that seems to have subsided at the moment. Reports pain is exacerbated with ambulation. Also reports tenderness along with a "hard spot" on the calf. She denies any chest pain or shortness of breath. She denies any history of PE or DVT. Denies any numbness or tingling. Reports full range of motion in the foot and ankle. No back or hip pain. She does have history of meniscal tear without surgical repair. - Related Data Home Medications Medication Instructions Recorded Confirmed Cetirizine HCl 10 mg PO DAILY 08/30/20 08/30/20 Docusate [Colace] 100 mg PO DAILY PRN 08/30/20 08/30/20 Famotidine [Pepcid] 20 mg PO DAILY 08/30/20 08/30/20 Levothyroxine Sodium [Synthroid] 50 mcg PO DAILY 08/30/20 08/30/20 [place] 1 tab PO DAILY 08/30/20 08/30/20 Sertraline [Zoloft] 50 mg PO DAILY 08/30/20 08/30/20 Previous Rx's Medication Instructions Recorded Meclizine [Antivert] 25 mg PO TID #20 tab 08/30/20 Allergies Allergy/AdvReac Type Severity Reaction Status Date / Time cyclobenzaprine Allergy Rash/Hives Verified 09/21/20 19:56 [From Flexeril] Review of Systems ROS Statement: Those systems with pertinent positive or pertinent negative responses have been documented in the HPI. ROS Other: All systems not noted in ROS Statement are negative. Past Medical History Past Medical History: Asthma, Thyroid Disorder Additional Past Medical History / Comment(s): occipital neuralgia History of Any Multi-Drug Resistant Organisms: None Reported Past Surgical History: No Surgical Hx Reported Past Psychological History: Anxiety, Depression Smoking Status: Current every day smoker, Vaper Past Alcohol Use History: Rare Past Drug Use History: None Reported General Exam Limitations: no limitations General appearance: alert, in no apparent distress Head exam: Present: atraumatic, normocephalic, normal inspection Eye exam: Present: normal appearance, PERRL, EOMI Pupils: Present: normal accommodation ENT exam: Present: normal exam, normal oropharynx, mucous membranes moist Neck exam: Present: normal inspection, full ROM. Absent: tenderness Respiratory exam: Present: normal lung sounds bilaterally. Absent: respiratory distress, wheezes, rales, rhonchi, stridor, chest wall tenderness, accessory muscle use Cardiovascular Exam: Present: regular rate, normal rhythm, normal heart sounds Extremities exam: Present: full ROM, tenderness (Infrapatellar tenderness of the right knee), normal capillary refill, calf tenderness (Positive Homans right leg ), other (Palpable DP and PT bilaterally.). Absent: normal inspection (Small indurated region on the posterior calf measuring about 1 cm in diameter. No overlying cellulitic skin changes. Questionable SVT. No varicose veins.), pedal edema, joint swelling Back exam: Present: normal inspection, full ROM. Absent: tenderness, CVA tenderness (R), CVA tenderness (L) Neurological exam: Present: alert, oriented X3, normal gait Psychiatric exam: Present: normal affect, normal mood Skin exam: Present: warm, dry, intact, normal color Course Vital Signs 09/21/20 09/21/20 19:53 22:14 Temperature 98.2 F 98.4 F Pulse Rate 80 88 Respiratory 18 16 Rate Blood Pressure 146/90 123/70 O2 Sat by Pulse 100 99 Oximetry Medical Decision Making - Medical Decision Making 19-year-old female presents emergency Department with chief complaint of knee and calf pain. On physical examination, patient is neurovascularly intact in the right lower extremity. Full range of motion in the knee but she does have slight pain with flexion. No signs of infection at this time. Calf tenderness. No chest pain or shortness of breath. Ultrasound negative for DVT. X-ray of the right knee unremarkable. Patient advised to alternate between Tylenol and Motrin for pain control. Advised to apply a knee brace. Advised to follow-up with disability benefits specialist if the symptoms continue. Strict return parameters were thoroughly discussed with patient was understanding and agreeable. Case discussed with Disposition Clinical Impression: Right knee pain Disposition: HOME SELF-CARE Condition: Stable Instructions (If sedation given, give patient instructions): Knee Pain (ED) Additional Instructions: Follow-up with disability benefits specialist if symptoms not improved. Return to emergency department if symptoms worsen. Is patient prescribed a controlled substance at d/c from ED?: No Referrals: Ricardo Mayen MD [Primary Care Provider] - 1-2 days Alvaro Parker MD [STAFF PHYSICIAN] - 1-2 days Time of Disposition: 22:35
--- NOTE | 2020-09-21 22:06 | US ---
EXAMINATION TYPE: US venous doppler duplex LE RT DATE OF EXAM: 09/21/2020 9:19 PM COMPARISON: NONE CLINICAL HISTORY: Rule out DVT. Pain. No hx of DVT. Patient does not take blood thinners. SIDE PERFORMED: Right TECHNIQUE: The lower extremity deep venous system is examined utilizing real time linear array sonog pennie with graded compression, doppler sonography and color-flow sonography. VESSELS IMAGED: Common Femoral Vein Deep Femoral Vein Greater Saphenous Vein * Femoral Vein Popliteal Vein Small Saphenous Vein * Proximal Calf Veins (* superficial vessels) Right Leg: No evidence of DVT in veins imaged at this time from prox calf veins to CFV/GSV. IMPRESSION: No sign of deep vein thrombosis in the right leg.
[2020-09-21 22:15] VITALS: BP 123/70; PULSE 88; RESP 16; TEMP 98.4
== END 2020-09-21 22:45 | disposition home or self-care (01) ==
LOC: EC 19:49
DX: M25.561 Pain in right knee (principal); J45.909 Unspecified asthma, uncomplicated; E07.9 Disorder of thyroid, unspecified; F32.9 Major depressive disorder, single episode, unspecified; F17.200 Nicotine dependence, unspecified, uncomplicated
CPT/HCPCS: 99284

== ENCOUNTER → 2020-09-26 | Outpatient (CLI) | payer BC ==
--- NOTE | 2020-10-05 12:12 | EM ---
EVENT MONITOR A seven-day event monitor report. The patient's event monitor rhythm strips were all reviewed. The rhythms are pretty much sinus rhythm, sinus tachycardia, sinus arrhythmia. No evidence of any significant arrhythmia noted. Most of these were symptoms stated by patient and almost all of them were sinus rhythm. There were some auto capture for sinus tachycardia. No significant arrhythmia noted. FINAL IMPRESSION: Unremarkable seven-day event monitor without any significant abnormal rhythms and no correlation of arrhythmia when patient triggered the event monitor. MMODL / IJN: [id number] /
== END | disposition home or self-care (01) ==
LOC: RADECHMAIN 12:28
PROVIDERS: ATTEND Family Medicine
DX: R00.2 Palpitations (principal)
CPT/HCPCS: 93270

== ENCOUNTER → 2020-10-03 | Outpatient (CLI) | payer BC ==
[2020-10-03 23:10] LABS: Basophils # (A) 0.03 X 10*3/uL (0.00-0.10); Basophils % (A) 0.6 %; Eosinophils # (A) 0.05 X 10*3/uL (0.04-0.35); Eosinophils % (A) 0.9 %; HCT 44.6 % (37.2-46.3); HGB 14.5 g/dL (12.0-15.0); Lymphocytes # (A) 1.83 X 10*3/uL (0.90-5.00); Lymphocytes % (A) 34.2 %; MCH 29.7 pg (27.0-32.0); MCHC 32.5 g/dL (32.0-37.0); MCV 91.2 fL (80.0-97.0); Monocytes # (A) 0.33 X 10*3/uL (0.20-1.00); Monocytes % (A) 6.2 %; Neutrophils # (A) 3.09 X 10*3/uL (1.80-7.70); Neutrophils % (A) 57.7 %; Platelet Count 239 X 10*3/uL (140-440); RBC 4.89 X 10*6/uL (4.10-5.20); RDW 12.7 % (11.5-14.5); WBC 5.35 X 10*3/uL (4.50-10.00)
== END | disposition home or self-care (01) ==
LOC: LABWHC1 15:14
PROVIDERS: ATTEND Internal Medicine Endocrinology, Diabetes & Metabolism
DX: E03.9 Hypothyroidism, unspecified (principal); R00.0 Tachycardia, unspecified
CPT/HCPCS: 36415; 82024; 82533; 84432; 85025; 86800

== ENCOUNTER → 2020-10-06 | Outpatient (CLI) | payer BC | END | disposition home or self-care (01) | LOC: LABWHC1 14:51 | PROVIDERS: ATTEND Internal Medicine Endocrinology, Diabetes & Metabolism | DX: R53.83 Other fatigue (principal) | CPT/HCPCS: 36415; 82024 ==

== ENCOUNTER → 2020-10-20 | Outpatient (CLI) | payer BC ==
--- NOTE | 2020-10-20 13:10 | US ---
EXAMINATION TYPE: US abdomen complete DATE OF EXAM: 10/20/2020 COMPARISON: NONE CLINICAL HISTORY: 19-year-old female R10.11 right upper quadrant pain. RUQ pain, heartburn TECHNIQUE: Multiple sonographic images of the abdomen are obtained. FINDINGS: EXAM MEASUREMENTS: Liver Length: 14.7 cm Gallbladder Wall: 0.2 cm CBD: 0.3 cm Spleen: 13.2 cm Right Kidney: 10.7 x 3.7 x 4.4 cm Left Kidney: 11.3 x 4.6 x 4.9 cm Erp Engineer notes: Technical limitations due to large amount of overlying bowel content Pancreas: Obscured by bowel gas Liver: visualized portions appear wnl Gallbladder: no evidence of stones Evidence for sonographic Vargas's sign: no CBD: wnl Spleen: Borderline enlarged. Right Kidney: no evidence of hydronephrosis Left Kidney: no evidence of hydronephrosis Upper IVC: Obscured by overlying bowel gas Abd Aorta: wnl IMPRESSION: Suboptimal visualization of the pancreas. There is borderline size of the spleen at 13.2 cm. Otherwis e, no specific abnormality seen.
--- NOTE | 2020-10-20 13:12 | US ---
EXAMINATION TYPE: US carotid duplex BILAT DATE OF EXAM: 10/20/2020 COMPARISON: NONE CLINICAL HISTORY: 19-year-old female R55 SYNCOPE, COLLAPSE. TECHNIQUE: Carotid duplex ultrasound examination. In direct Doppler criteria was utilized. FINDINGS: EXAM MEASUREMENTS: RIGHT: Peak Systolic Velocity (PSV) cm/sec ----- Right CCA: 115.7 ----- Right ICA: 111.7 ----- Right ECA: 68.6 ICA/CCA ratio: 1.0 RIGHT: End Diastole cm/sec ----- Right CCA: 32.8 ----- Right ICA: 51.2 ----- Right ECA: 17.1 LEFT: Peak Systolic Velocity (PSV) cm/sec ----- Left CCA: 133.4 ----- Left ICA: 118.5 ----- Left ECA: 80.9 ICA/CCA ratio: 0.9 LEFT: End Diastole cm/sec ----- Left CCA: 39.7 ----- Left ICA: 31.8 ----- Left ECA: 16.0 VERTEBRALS (direction of flow): Right Vertebral: Antegrade Left Vertebral: Antegrade Rhythm: Normal Blocking Machine Tender notes: No evidence of plaque or significant stenosis IMPRESSION: No hemodynamically significant internal carotid artery stenosis on either side. Criteria for Assigning % of Stenosis / Diameter reduction (Estimation based on the indirect measurements of the internal carotid artery velocities (ICA PSV). 1. Normal (no stenosis)=ICA PSV < 125 cm/s: ratio < 2.0: ICA EDV<40 cm/s. 2. Less than 50% stenosis=ICA PSV < 125 cm/s: ratio < 2.0: ICA EDV<40 cm/s. 3. 50 to 69% stenosis=ICA PSV of 125 to 230 cm/s: ration 2.0 ? 4.0: ICA EDV 40-100 cm/s. 4. Greater than 70% stenosis to near occlusion= ICA PSV > 230 cm/s: ratio > 4.0: ICA EDV > 100 cm/s. 5. Near occlusion= ICA PSV velocities may be low or undetectable: variable ratio and ICA EDV. 6. Total occlusion=unable to detect flow.
== END | disposition home or self-care (01) ==
LOC: RADUSWWP 06:58
PROVIDERS: ATTEND Family Medicine
DX: R10.11 Right upper quadrant pain (principal); R55 Syncope and collapse
CPT/HCPCS: 76700; 93880

== ENCOUNTER → 2020-11-15 | Outpatient (CLI) | payer BC | END | disposition home or self-care (01) | LOC: LABWHC1 15:10 | PROVIDERS: ATTEND Internal Medicine Endocrinology, Diabetes & Metabolism | DX: E03.8 Other specified hypothyroidism (principal) | CPT/HCPCS: 36415; 84443 ==

== ENCOUNTER 2020-11-25 16:44 | Emergency (ER) | payer BC ==
[2020-11-25 16:48] VITALS: BP 128/81; PULSE 86; RESP 18; TEMP 97.9
--- NOTE | 2020-11-25 17:24 | ED ---
Lower Extremity Injury HPI - General Chief Complaint: Extremity Injury, Lower Stated Complaint: leg pain/dizzy/nausea Time Seen by Provider: 11/25/20 16:49 Source: patient Mode of arrival: ambulatory Limitations: no limitations - History of Present Illness Initial Comments: Patient is a 20-year-old female presenting to the emergency department with conc erns of pain in her left calf. Patient states she was sitting cross leg get it, on an uncomfortable chair when she stood up, walked to a different room and started having spasming of her left calf. She states it was very intense, she could see the muscle moving. She states this lasted about 30 seconds and then afterwards she's been having pain in her left calf. Patient was concerned for possible blood clot so she wanted to come in to be seen. She denies any chest pain or shortness of breath, no cough. She has no histories of blood clots. She states she does have a sciatic nerve issue of her left side. She does have some intermittent numbness and tingling in her left foot occasionally, none right now. She denies any recent travel, she is on control. She has no further complaints at this time. - Related Data Home Medications Medication Instructions Recorded Confirmed Cetirizine HCl 10 mg PO DAILY 08/30/20 08/30/20 Docusate [Colace] 100 mg PO DAILY PRN 08/30/20 08/30/20 Famotidine [Pepcid] 20 mg PO DAILY 08/30/20 08/30/20 Levothyroxine Sodium [Synthroid] 50 mcg PO DAILY 08/30/20 08/30/20 [place] 1 tab PO DAILY 08/30/20 08/30/20 Sertraline [Zoloft] 50 mg PO DAILY 08/30/20 08/30/20 Previous Rx's Medication Instructions Recorded Meclizine [Antivert] 25 mg PO TID #20 tab 08/30/20 Allergies Allergy/AdvReac Type Severity Reaction Status Date / Time cyclobenzaprine Allergy Rash/Hives Verified 11/25/20 16:48 [From Flexeril] Review of Systems ROS Statement: Those systems with pertinent positive or pertinent negative responses have been documented in the HPI. ROS Other: All systems not noted in ROS Statement are negative. Past Medical History Past Medical History: Asthma, Thyroid Disorder Additional Past Medical History / Comment(s): occipital neuralgia History of Any Multi-Drug Resistant Organisms: None Reported Past Surgical History: No Surgical Hx Reported Past Psychological History: Anxiety, Depression Smoking Status: Current every day smoker, Vaper Past Alcohol Use History: Rare Past Drug Use History: None Reported General Exam - General Exam Comments Initial Comments: GENERAL: Patient is well-developed and well-nourished. Patient is nontoxic and in no acute distress. HEAD: Atraumatic, normocephalic. EYES: Pupils equal round and reactive to light, extraocular movements intact, sclera anicteric, conjunctiva are normal. Eyelids were unremarkable. ENT: Nares patent, oropharynx clear without exudates. Moist mucous membranes. NECK: Normal range of motion, supple without lymphadenopathy or JVD. LUNGS: Unlabored respirations. Breath sounds clear to auscultation bilaterally and equal. No wheezes rales or rhonchi. HEART: Regular rate and rhythm without murmurs, rubs or gallops. ABDOMEN: Soft, nontender, normoactive bowel sounds. No guarding, no rebound. No masses appreciated. : Deferred MUSCULOSKELETAL: Very mild discomfort to palpation of the left calf, there is no swelling, no erythema, she has full active range of motion of her left foot and knee. She is neurovascular intact. No clubbing or cyanosis. NEUROLOGICAL: Patient is alert and oriented x 3. Normal speech, normal gait. PSYCH: Normal mood, normal affect. SKIN: Warm, Dry, normal turgor, no rashes or lesions noted. Limitations: no limitations Course Vital Signs 11/25/20 16:45 Temperature 97.9 F Pulse Rate 86 Respiratory 18 Rate Blood Pressure 128/81 O2 Sat by Pulse 97 Oximetry Medical Decision Making - Medical Decision Making Patient is a 20-year-old female here for left calf pain after a cramp today where she was walking. She states the cramping last several 30 seconds, she was seen in the muscle move and afterwards it has been sore. She was worried for possible blood clot. Patient has no swelling, no erythema, minimal pain on palpation. She denies any recent travel. She has no history of blood clots. I discussed with the patient as is most likely a muscle spasm and she is sore secondary to the spasm. Her likelihood of a blood clot is very low at this time. She is stable for discharge. Return parameters were discussed with the patient she verbalized understanding. She can follow up with her PCP. Disposition Clinical Impression: Cramps of left lower extremity Disposition: HOME SELF-CARE Condition: Stable Instructions (If sedation given, give patient instructions): Leg Cramps (ED) Additional Instructions: Please return to the Emergency Department if symptoms worsen or any other concerns. Recommended he and/or ice to the area, gentle stretching and massage. May take Tylenol for any discomfort. Follow up with her PCP. Is patient prescribed a controlled substance at d/c from ED?: No Referrals: Ricardo Mayen MD [Primary Care Provider] - 1-2 days Time of Disposition: 17:24
== END 2020-11-25 17:28 | disposition home or self-care (01) ==
LOC: EC 16:44
DX: R25.2 Cramp and spasm (principal); M79.662 Pain in left lower leg; R42 Dizziness and giddiness; R11.0 Nausea; R20.0 Anesthesia of skin; R20.2 Paresthesia of skin; J45.909 Unspecified asthma, uncomplicated; F32.9 Major depressive disorder, single episode, unspecified; F41.9 Anxiety disorder, unspecified; F17.290 Nicotine dependence, other tobacco product, uncomplicated
CPT/HCPCS: 99283

== ENCOUNTER 2021-02-22 10:42 | Emergency (ER) | payer BC ==
[2021-02-22 10:46] VITALS: TEMP 98.6
--- NOTE | 2021-02-22 11:02 | ED ---
General Adult HPI - General Chief complaint: Syncope Stated complaint: syncope Time Seen by Provider: 02/22/21 10:50 Source: patient Mode of arrival: wheelchair Limitations: no limitations - History of Present Illness Initial comments: 20-year-old well-appearing white female presents to the emergency room, alert and oriented 4, with complaints of walking today around 9:30 and having a sudden onset of left sided neck pain with bilateral leg weakness and blurred vision. Patient states it lasted approximately 15 minutes. She did not fall to the ground or lose consciousness. She does state that she did fall yesterday while walking with a patient and put her left arm out to break her fall. She states she did not hit her head or sustained any injuries. She states that the people she was walking with wanted to call EMS however she chose to come to the hospital on her own. Patient states something similar to this happen last year in October. She does see a neurologist, Dr. Hardy, and receives occipital injections. Her last injection was in April of last year. She did have an appointment with her primary care Dr. Mayen this week however her insurance changed and that needs to be rescheduled. She denies any pain at this time. She has had an MRI for similar symptoms because they were concerned with an aneurysm and it was negative. Her symptoms have resolved at this time. Her vision is back to normal. -: hour(s) (2) Location: head, neck Severity scale (1-10): 0 Quality: other (tightness) Consistency: intermittent, now resolved Improves with: none Associated Symptoms: weakness, other (blurred vision) Treatments Prior to Arrival: none - Related Data Home Medications Medication Instructions Recorded Confirmed Levothyroxine Sodium [Synthroid] 75 mcg PO DAILY 02/22/21 02/22/21 Allergies Allergy/AdvReac Type Severity Reaction Status Date / Time cyclobenzaprine Allergy Rash/Hives Verified 02/22/21 13:27 [From Flexeril] Review of Systems ROS Statement: Those systems with pertinent positive or pertinent negative responses have been documented in the HPI. ROS Other: All systems not noted in ROS Statement are negative. Past Medical History Past Medical History: Asthma, Thyroid Disorder Additional Past Medical History / Comment(s): occipital neuralgia, vertigo History of Any Multi-Drug Resistant Organisms: None Reported Past Surgical History: No Surgical Hx Reported Past Psychological History: Anxiety, Depression Smoking Status: Current every day smoker, Vaper Past Alcohol Use History: Rare Past Drug Use History: None Reported General Exam Limitations: no limitations General appearance: alert, in no apparent distress Head exam: Present: atraumatic, normocephalic, normal inspection Eye exam: Present: normal appearance, PERRL, EOMI. Absent: scleral icterus, conjunctival injection, nystagmus, periorbital swelling Pupils: Present: normal accommodation ENT exam: Present: normal exam, normal oropharynx, mucous membranes moist, TM's normal bilaterally Neck exam: Present: normal inspection, full ROM. Absent: tenderness, meningismus, lymphadenopathy, thyromegaly Respiratory exam: Present: normal lung sounds bilaterally. Absent: respiratory distress, wheezes, rales, rhonchi, stridor, chest wall tenderness, accessory muscle use, decreased breath sounds, prolonged expiratory Cardiovascular Exam: Present: regular rate, normal rhythm, normal heart sounds. Absent: systolic murmur, diastolic murmur, rubs, gallop, clicks GI/Abdominal exam: Present: soft, normal bowel sounds. Absent: distended, tenderness, guarding, rebound, rigid Extremities exam: Present: normal inspection, full ROM, normal capillary refill. Absent: tenderness, pedal edema, joint swelling, calf tenderness Back exam: Present: normal inspection, full ROM. Absent: tenderness, CVA tenderness (R), CVA tenderness (L), muscle spasm, paraspinal tenderness, vertebral tenderness, rash noted Neurological exam: Present: alert, oriented X3, CN II-XII intact Expanded Patient oriented to: Present: person, place, time Speech: Present: fluid speech Cranial nerves: EOM's Intact: Normal, Gag Reflex: Normal, Tongue Deviation: Normal Cerebellar function: Finger to Nose: Normal, Heel to [place]: Normal Eye Response: (4) open spontaneously Motor Response: (6) obeys commands Verbal Response: (5) oriented Sri Total: 15 Psychiatric exam: Present: anxious Skin exam: Present: warm, dry, intact, normal color. Absent: rash, cyanosis, diaphoretic, erythema, petechiae, pallor, mottled Course Vital Signs 02/22/21 02/22/21 10:44 14:00 Temperature 98.6 F Pulse Rate 87 69 Respiratory 18 20 Rate Blood Pressure 136/101 133/73 O2 Sat by Pulse 97 99 Oximetry EKG Findings - EKG Results: EKG: sinus rhythm (Ventricular rate 61, AL interval 0.134, QRS of 0.78, Q TC 0.416) Medical Decision Making - Medical Decision Making CT angiogram head shows no evidence for aneurysm or vascular malformation. Electrolytes are within normal limits, there is no evidence of leukocytosis. Her urine is clear. She is negative for . She does have a history of occipital neuralgia and has had similar events in the past. She had a brain CAT scan in 2017 and ultrasound of her neck in November 2019 carotids[address] She does see Dr. Hardy. Her symptoms have resolved at this time. She'll be referred to follow up with her primary care doctor Dr. Mayen next week. Case discussed with Dr. Jiménez - Lab Data Result diagrams: 02/22/21 11:31 02/22/21 11:31 Lab Results 02/22/21 02/22/21 02/22/21 Range/Units 11:31 11:31 11:31 WBC 6.0 (3.8-10.6) k/uL RBC 4.89 (3.80-5.40) m/uL Hgb 15.1 (11.4-16.0) gm/dL Hct 44.9 (34.0-46.0) % MCV 91.9 (80.0-100.0) fL MCH 30.9 (25.0-35.0) pg MCHC 33.6 (31.0-37.0) g/dL RDW 13.8 (11.5-15.5) % Plt Count 228 (150-450) k/uL MPV 7.9 Neutrophils % 65 % Lymphocytes % 26 % Monocytes % 5 % Eosinophils % 1 % Basophils % 1 % Neutrophils # 3.9 (1.3-7.7) k/uL Lymphocytes # 1.6 (1.0-4.8) k/uL Monocytes # 0.3 (0-1.0) k/uL Eosinophils # 0.1 (0-0.7) k/uL Basophils # 0.0 (0-0.2) k/uL Sodium 137 (137-145) mmol/L Potassium 4.2 (3.5-5.1) mmol/L Chloride 106 (98-107) mmol/L Carbon Dioxide 24 (22-30) mmol/L Anion Gap 7 mmol/L BUN 11 (7-17) mg/dL Creatinine 0.72 (0.52-1.04) mg/dL Est GFR (CKD-EPI)AfAm >90 (>60 ml/min/1.73 sqM) Est GFR (CKD-EPI)NonAf >90 (>60 ml/min/1.73 sqM) Glucose 98 (74-99) mg/dL Calcium 9.6 (8.4-10.2) mg/dL Magnesium 2.0 (1.6-2.3) mg/dL Total Bilirubin 0.7 (0.2-1.3) mg/dL AST 25 (14-36) U/L ALT 24 (4-34) U/L Alkaline Phosphatase 86 (38-126) U/L Troponin I (0.000-0.034) ng/mL Total Protein 7.1 (6.3-8.2) g/dL Albumin 4.5 (3.5-5.0) g/dL Urine Color Light Yellow Urine Appearance Clear (Clear) Urine pH 5.5 (5.0-8.0) Ur Specific [place] 1.009 (1.001-1.035) Urine Protein Negative (Negative) Urine Glucose (UA) Negative (Negative) Urine Ketones Negative (Negative) Urine Blood Negative (Negative) Urine Nitrite Negative (Negative) Urine Bilirubin Negative (Negative) Urine Urobilinogen <2.0 (<2.0) mg/dL Ur Leukocyte Esterase Negative (Negative) Urine HCG, Qual (Not Detectd) 02/22/21 02/22/21 Range/Units 11:31 11:31 WBC (3.8-10.6) k/uL RBC (3.80-5.40) m/uL Hgb (11.4-16.0) gm/dL Hct (34.0-46.0) % MCV (80.0-100.0) fL MCH (25.0-35.0) pg MCHC (31.0-37.0) g/dL RDW (11.5-15.5) % Plt Count (150-450) k/uL MPV Neutrophils % % Lymphocytes % % Monocytes % % Eosinophils % % Basophils % % Neutrophils # (1.3-7.7) k/uL Lymphocytes # (1.0-4.8) k/uL Monocytes # (0-1.0) k/uL Eosinophils # (0-0.7) k/uL Basophils # (0-0.2) k/uL Sodium (137-145) mmol/L Potassium (3.5-5.1) mmol/L Chloride (98-107) mmol/L Carbon Dioxide (22-30) mmol/L Anion Gap mmol/L BUN (7-17) mg/dL Creatinine (0.52-1.04) mg/dL Est GFR (CKD-EPI)AfAm (>60 ml/min/1.73 sqM) Est GFR (CKD-EPI)NonAf (>60 ml/min/1.73 sqM) Glucose (74-99) mg/dL Calcium (8.4-10.2) mg/dL Magnesium (1.6-2.3) mg/dL Total Bilirubin (0.2-1.3) mg/dL AST (14-36) U/L ALT (4-34) U/L Alkaline Phosphatase (38-126) U/L Troponin I <0.012 (0.000-0.034) ng/mL Total Protein (6.3-8.2) g/dL Albumin (3.5-5.0) g/dL Urine Color Urine Appearance (Clear) Urine pH (5.0-8.0) Ur Specific [place] (1.001-1.035) Urine Protein (Negative) Urine Glucose (UA) (Negative) Urine Ketones (Negative) Urine Blood (Negative) Urine Nitrite (Negative) Urine Bilirubin (Negative) Urine Urobilinogen (<2.0) mg/dL Ur Leukocyte Esterase (Negative) Urine HCG, Qual Not Detected (Not Detectd) Disposition Clinical Impression: Near syncope Disposition: HOME SELF-CARE Condition: Good Additional Instructions: Follow-up with Dr. Mayen in Dr. Hardy next week. Return to the emergency room with any worsening or new symptoms. Is patient prescribed a controlled substance at d/c from ED?: No Referrals: Ricardo Mayen MD [Primary Care Provider] - 1-2 days Time of Disposition: 15:05
[2021-02-22] MEDS ORDERED: SODIUM CHLORIDE 0.9% 1,000 ML IV STA (11:07)
[2021-02-22] MEDS ORDERED: RX INFO: IV CONTRAST WAS GIVEN 1 EACH MISC MISCELLANE PRN (11:08)
[2021-02-22 11:45] LABS: Basophils % (A) 1 %; Eosinophils # (A) 0.1 k/uL (0-0.7); Eosinophils % (A) 1 %; HCT 44.9 % (34.0-46.0); HGB 15.1 gm/dL (11.4-16.0); Lymphocytes # (A) 1.6 k/uL (1.0-4.8); Lymphocytes % (A) 26 %; MCH 30.9 pg (25.0-35.0); MCHC 33.6 g/dL (31.0-37.0); MCV 91.9 fL (80.0-100.0); Mean Platelet Volume 7.9; Monocytes # (A) 0.3 k/uL (0-1.0); Monocytes % (A) 5 %; Neutrophils # (A) 3.9 k/uL (1.3-7.7); Neutrophils % (A) 65 %; Platelet Count 228 k/uL (150-450); RBC 4.89 m/uL (3.80-5.40); RDW 13.8 % (11.5-15.5)
[2021-02-22 11:56] LABS: ALT 24 U/L (4-34); AST 25 U/L (14-36); African American GFR (CKD) >90 (>60 ml/min/1.73 sqM); Albumin 4.5 g/dL (3.5-5.0); Alkaline Phosphatase 86 U/L (38-126); Anion Gap 7 mmol/L; Blood Urea Nitrogen 11 mg/dL (7-17); Calcium 9.6 mg/dL (8.4-10.2); Carbon Dioxide 24 mmol/L (22-30); Chloride 106 mmol/L (98-107); Glucose 98 mg/dL (74-99); Non-African American GFR(CKD) >90 (>60 ml/min/1.73 sqM); Potassium 4.2 mmol/L (3.5-5.1); Sodium 137 mmol/L (137-145); Total Bilirubin 0.7 mg/dL (0.2-1.3); Total Protein 7.1 g/dL (6.3-8.2)
[2021-02-22 12:04] LABS: Appearance,Urine Clear (Clear); Bilirubin,Urine Negative (Negative); Blood,Urine Negative (Negative); Color,Urine Light Yellow; Glucose,Urine (UA) Negative (Negative); Ketones,Urine Negative (Negative); Leukocyte Esterase,Urine Negative (Negative); Nitrite,Urine Negative (Negative); PH, Urine 5.5 (5.0-8.0); Protein,Urine Negative (Negative); Specific Gravity,Urine 1.009 (1.001-1.035); Urobilinogen,Urine <2.0 mg/dL (<2.0)
[2021-02-22 14:33] VITALS: BP 133/73; PULSE 69; RESP 20
--- NOTE | 2021-02-22 15:00 | CT ---
EXAMINATION TYPE: CT angio head DATE OF EXAM: 02/22/2021 COMPARISON: None HISTORY: Headache, blurred vision, near syncope. CT DLP: 1770.9 mGycm CONTRAST: CTA [place] with 3-D reconstruction is performed and without and with IV Contrast, patient i njected with 65 mL of Isovue 370. Contrast CTA of the [place] was performed 3-D reconstruction imaging obtained at a separate workstation. Vertebrobasilar system as well as intracranial portions of the internal carotid arterie s and their major tributaries are patent. I do not see evidence for sizable aneurysm or vascular mal formation. Please note MRI provides greater sensitivity and specificity. Visualized brain appears g rossly unremarkable. IMPRESSION: No evidence for sizable aneurysm or vascular malformation.
== END 2021-02-22 15:51 | disposition home or self-care (01) ==
LOC: EC 10:42
DX: R55 Syncope and collapse (principal); F17.290 Nicotine dependence, other tobacco product, uncomplicated
CPT/HCPCS: 36415; 93005; 80053; 83735; 84484; 85025; 81003; 81025; 70496; 99284; 96360; Q9967

== ENCOUNTER 2021-02-26 20:05 | Emergency (ER) | payer BC ==
[2021-02-26 20:13] VITALS: BP 156/86; PULSE 101; RESP 18; TEMP 97.8
[2021-02-26] MEDS ORDERED: predniSONE 20 MG TAB PO STA (21:44)
[2021-02-26] MEDS ORDERED: FAMOTIDINE 20 MG TAB PO STA (21:44)
[2021-02-26] MEDS ORDERED: diphenhydrAMINE 50 MG CAP PO STA (21:44)
--- NOTE | 2021-02-26 21:45 | ED ---
Skin/Abscess/FB HPI - General Chief complaint: Skin/Abscess/Foreign Body Stated complaint: allergic reaction to bug bite Time Seen by Provider: 02/26/21 21:23 Source: patient, RN notes reviewed, old records reviewed Mode of arrival: ambulatory Limitations: no limitations - History of Present Illness Initial comments: This is a 20-year-old female DF for evaluation of likely ALLERGIC reaction patient believes she was bit by a bee stung her left lower currently. She does have swelling and localized swelling redness and itching the area. No other complaints of shortness of breath. No history of significant reaction to bee stings MD complaint: rash, insect bite/sting -: days(s) Tetanus Up to Date: yes Location: generalized Severity: moderate Severity scale (1-10): 4 Quality: burning Consistency: constant Improves with: none Worsens with: none Context: recent illness Associated symptoms: denies other symptoms Treatments Prior to Arrival: none - Related Data Home Medications Medication Instructions Recorded Confirmed Levothyroxine Sodium [Synthroid] 75 mcg PO DAILY 02/22/21 02/22/21 Previous Rx's Medication Instructions Recorded Hydrocortisone Cream 1 applic TOPICAL TID #1 tube 02/26/21 [Hydrocortisone 2.5% Cream] predniSONE 50 mg PO DAILY #5 tab 02/26/21 Allergies Allergy/AdvReac Type Severity Reaction Status Date / Time cyclobenzaprine Allergy Rash/Hives Verified 02/26/21 20:09 [From Flexeril] Review of Systems ROS Statement: Those systems with pertinent positive or pertinent negative responses have been documented in the HPI. ROS Other: All systems not noted in ROS Statement are negative. Past Medical History Past Medical History: Asthma, Thyroid Disorder Additional Past Medical History / Comment(s): occipital neuralgia, vertigo History of Any Multi-Drug Resistant Organisms: None Reported Past Surgical History: No Surgical Hx Reported Past Psychological History: Anxiety, Depression Smoking Status: Current every day smoker, Vaper Past Alcohol Use History: Rare Past Drug Use History: None Reported General Exam Limitations: no limitations Course Vital Signs 02/26/21 20:10 Temperature 97.8 F Pulse Rate 101 H Respiratory 18 Rate Blood Pressure 156/86 O2 Sat by Pulse 99 Oximetry - Reevaluation(s) Reevaluation #1: 02/27/21 Record is reviewed Patient symptoms are improved here in the emergency department Patient informed of results and questions answered Patient is in no acute distress Medical Decision Making - Medical Decision Making 20 female to the emergency room for evaluation of bee sting or some sort of bug bite. She does have localized reaction, but no distress. Patient be treated for local hypersensitivity and discharged home Disposition Clinical Impression: Bug bite Disposition: HOME SELF-CARE Condition: Good Instructions (If sedation given, give patient instructions): Insect Bite or Sting (ED) Prescriptions: Hydrocortisone Cream [Hydrocortisone 2.5% Cream] 1 applic TOPICAL TID #1 tube predniSONE 50 mg PO DAILY #5 tab Is patient prescribed a controlled substance at d/c from ED?: No Referrals: Ricardo Mayen MD [Primary Care Provider] - 1-2 days
== END 2021-02-26 22:08 | disposition home or self-care (01) ==
LOC: EC 20:05
DX: T63.441A Toxic effect of venom of bees, accidental (unintentional), initial encounter (principal); J45.909 Unspecified asthma, uncomplicated; E07.9 Disorder of thyroid, unspecified; F41.9 Anxiety disorder, unspecified; F32.9 Major depressive disorder, single episode, unspecified; F17.200 Nicotine dependence, unspecified, uncomplicated; Z88.6 Allergy status to analgesic agent
CPT/HCPCS: 99282; J7512

== ENCOUNTER 2021-05-18 23:45 | Emergency (ER) | payer BC, OTHER ==
[2021-05-18 23:50] VITALS: BP 131/69; PULSE 72; RESP 18; TEMP 97
--- NOTE | 2021-05-19 00:18 | XR ---
EXAMINATION TYPE: XR hand limited RT DATE OF EXAM: 05/19/2021 COMPARISON: NONE HISTORY: Right hand pain TECHNIQUE: 2 views FINDINGS: Metacarpals are intact. I see no fracture nor dislocation. Joint spaces are normal. There a re no erosions. IMPRESSION: Negative right hand exam. No fracture.
--- NOTE | 2021-05-19 01:38 | ED ---
Upper Extremity HPI - General Chief Complaint: Extremity Injury, Upper Stated Complaint: RT finger injury Time Seen by Provider: 05/19/21 01:04 Source: patient, RN notes reviewed Mode of arrival: ambulatory Limitations: no limitations - History of Present Illness Initial Comments: Patient is a 20-year-old female presenting to the emergency Department with complaints of pain in her right little finger. Patient states she accidentally hit it on a wall, on the lateral aspect, about a couple hours before arrival. She admits to some mild swelling, decreased mobility secondary to pain. She has no further complaints. - Related Data Home Medications Medication Instructions Recorded Confirmed Levothyroxine Sodium [Synthroid] 75 mcg PO DAILY 02/22/21 02/22/21 Previous Rx's Medication Instructions Recorded Hydrocortisone Cream 1 applic TOPICAL TID #1 tube 02/26/21 [Hydrocortisone 2.5% Cream] predniSONE 50 mg PO DAILY #5 tab 02/26/21 Allergies Allergy/AdvReac Type Severity Reaction Status Date / Time cyclobenzaprine Allergy Rash/Hives Verified 05/18/21 23:50 [From Flexeril] Review of Systems ROS Statement: Those systems with pertinent positive or pertinent negative responses have been documented in the HPI. ROS Other: All systems not noted in ROS Statement are negative. Past Medical History Past Medical History: Asthma, Thyroid Disorder Additional Past Medical History / Comment(s): occipital neuralgia, vertigo History of Any Multi-Drug Resistant Organisms: None Reported Past Surgical History: No Surgical Hx Reported Past Psychological History: Anxiety, Depression Smoking Status: Current every day smoker, Vaper Past Alcohol Use History: Rare Past Drug Use History: None Reported General Exam - General Exam Comments Initial Comments: GENERAL: Patient is well-developed and well-nourished. Patient is nontoxic and in no acute distress. HEAD: Atraumatic, normocephalic. EYES: Pupils equal round and reactive to light, extraocular movements intact, sclera anicteric, conjunctiva are normal. Eyelids were unremarkable. LUNGS: Unlabored respirations. Breath sounds clear to auscultation bilaterally and equal. No wheezes rales or rhonchi. HEART: Regular rate and rhythm without murmurs, rubs or gallops. MUSCULOSKELETAL: Patient has pain on palpation of the lateral aspect of the right hand, near the fifth metacarpal. She is some mild bruising present, some mild swelling. She is neurovascular intact. No obvious deformity. No clubbing or cyanosis. NEUROLOGICAL: Patient is alert and oriented x 3. SKIN: Warm, Dry, normal turgor, no rashes or lesions noted. Course Vital Signs 05/18/21 23:46 Temperature 97.0 F L Pulse Rate 72 Respiratory 18 Rate Blood Pressure 131/69 O2 Sat by Pulse 98 Oximetry Medical Decision Making - Medical Decision Making Patient is a 20-year-old female here with pain in her right little finger after hitting on the wall. X-rays reveal no acute fractures dislocations. We discussed contusion care. She is stable for discharge. Disposition Clinical Impression: Contusion of right little finger Disposition: HOME SELF-CARE Condition: Stable Instructions (If sedation given, give patient instructions): Contusion in Adults (ED) Additional Instructions: Please return to the Emergency Department if symptoms worsen or any other leni rns. Recommend ice to the area, Tylenol and/or Motrin for any discomfort. Follow-up with your primary care physician as needed. Is patient prescribed a controlled substance at d/c from ED?: No Referrals: Ricardo Mayen MD [Primary Care Provider] - 1-2 days Time of Disposition: 01:38
== END 2021-05-19 01:48 | disposition home or self-care (01) ==
LOC: EC 23:45
DX: S60.051A Contusion of right little finger without damage to nail, initial encounter (principal); J45.909 Unspecified asthma, uncomplicated; F17.290 Nicotine dependence, other tobacco product, uncomplicated; Z79.52 Long term (current) use of systemic steroids; Z79.890 Hormone replacement therapy; W22.01XA Walked into wall, initial encounter
CPT/HCPCS: 99283

== ENCOUNTER → 2021-08-20 | Outpatient (CLI) | payer OTHER, BC ==
--- NOTE | 2021-08-20 16:10 | US ---
EXAMINATION TYPE: US thyroid st tissue head/neck DATE OF EXAM: 08/20/2021 COMPARISON: NONE CLINICAL HISTORY: 20-year-old female E04.2 NONTOXIC MULTINODULAR GOITER. Known Nicholas's disease, o n meds, TECHNIQUE: Multiple sonographic images of the thyroid gland are obtained. FINDINGS: GLAND SIZE: Right Lobe: 5.0 x 1.8 x 2.4 cm Overall Parenchyma: heterogenous Left Lobe: 4.0 x 1.5 x 1.8 cm Overall Parenchyma: heterogeneous Isthmus Thickness: 0.7 cm Diffuse hyperemia. NODULES RIGHT: # of nodules measured on right: 0 LEFT: # of nodules measured on left: 0 ISTHMUS: # of nodules measured in the isthmus: 0 Bilateral neck scanned, no evidence of lymphadenopathy. IMPRESSION: Thickened and markedly heterogeneous gland with diffuse hyperemia. 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
== END | disposition home or self-care (01) ==
LOC: RADUSWWP 14:16
PROVIDERS: ATTEND Internal Medicine Endocrinology, Diabetes & Metabolism
DX: E06.3 Autoimmune thyroiditis (principal)
CPT/HCPCS: 76536

== ENCOUNTER → 2021-09-20 | Outpatient (CLI) | payer OTHER, BC | END | disposition home or self-care (01) | LOC: LABWHC1 11:41 | PROVIDERS: ATTEND Nurse Practitioner Family | DX: Z33.1 Pregnant state, incidental (principal); Z3A.00 Weeks of gestation of pregnancy not specified | CPT/HCPCS: 36415; 84702 ==

== ENCOUNTER → 2021-09-25 | Outpatient (CLI) | payer OTHER, BC ==
[2021-09-25 20:27] LABS: T4, Free (Free Thyroxine) 1.17 ng/dL (0.800-1.800)
== END | disposition home or self-care (01) ==
LOC: LABWHC1 13:00
PROVIDERS: ATTEND Internal Medicine Endocrinology, Diabetes & Metabolism
DX: E03.8 Other specified hypothyroidism (principal)
CPT/HCPCS: 36415; 84439; 84443; 84480

== ENCOUNTER → 2022-02-18 | Outpatient (CLI) | payer OTHER, BC ==
[2022-02-18 14:45] LABS: HCT 37.9 % (37.2-46.3); HGB 12.2 g/dL (12.0-15.0); MCH 29.2 pg (27.0-32.0); MCHC 32.2 g/dL (32.0-37.0); MCV 90.7 fL (80.0-97.0); Mean Platelet Volume 10.7 fL (9.5-12.2); NRBC Per 100 WBC 0 /100 WBCS (0.0-0.0); Platelet Count 170 X 10*3/uL (140-440); RBC 4.18 X 10*6/uL (4.10-5.20); RDW 13.6 % (11.5-14.5); WBC 7.76 X 10*3/uL (4.50-10.00)
== END | disposition home or self-care (01) ==
LOC: LABWHC1 07:50
PROVIDERS: ATTEND Obstetrics & Gynecology Obstetrics
DX: Z36.9 Encounter for antenatal screening, unspecified (principal); E03.8 Other specified hypothyroidism
CPT/HCPCS: 36415; 82950; 84443; 85027

== ENCOUNTER 2022-04-02 18:24 | Outpatient (CLI) | payer OTHER, BC ==
[2022-04-02 18:45] LABS: Glucose,Whole Blood 86 mg/dL (70-110)
[2022-04-02 19:26] VITALS: BP 132/75; PULSE 85; RESP 18; TEMP 97.5
--- NOTE | 2022-05-21 13:51 | P.MSEPDOC ---
Presenting Problems - Arrival Data Date of Arrival on Unit: 04/02/22 Time of Arrival on Unit: 18:24 Mode of Transport: Wheelchair - Complaint OB-Reason for Admission/Chief Complaint: Acute Nausea/Vomiting, Visual Disturbances, Dizziness Medical History - Information : 2 Para: 0 Term: 0 : 0 Abortions: Spontaneous or Elective: 1 Number of Living Children: 0 - Gestational Age Gestational Age by LIZA (wks/days): 34 Weeks and 4 Days - History Complications: GDM Review of Systems - Review of Systems Constitutional: No problems Breast: No problems ENT: No problems Cardiovascular: No problems Respiratory: No problems Gastrointestinal: No problems Genitourinary: No problems Musculoskeletal: No problems Neurological: No problems Skin: No problems Vital Signs - Temperature Temperature: 97.5 F Temperature Source: Oral - Pulse Pulse Oximetery Pulse Rate: 85 Pulse Assessment Method: Pulse Oximetry - Respirations Respiratory Rate: 18 Oxygen Delivery Method: Room Air O2 Sat by Pulse Oximetry: 97 - Blood Pressure Right Arm Blood Pressure: 132/75 Blood Pressure Mean: 94 Blood Pressure Source: Automatic Cuff Medical Screen Scoring - Cervical Exam Membranes: Intact - Uterine Contractions Intensity: Absent Resting: Soft to palpation - Assessment - Baby A Baseline FHR: 135 Heart Rate - NICHD Category: Category I (Normal) NST: Reactive Physician Notification - Physician Notified Physician Notified Date: 04/02/22 Physician Notified Time: 18:40 Physician: India Kruse Order Received: Yes - Notification Comment Comment: RN reported to Dr. Kruse on maternal/ status, pt's complaints, Category 1. FHTs and reactive. Pt appears anxious. VS are WNL. No signs of distress ntoed. RN to. check pt's BS, if WNL, pt may DC home with follow up with Dr. Day tomorrow. Pt's. presentation does not indicate further testing at this time. BS is 86. Pt states that she had 2 pieces of toast and peanut butter about 2. hours ago. RN extensively educated patient on GDM diet and following GDM guidelines. RN. printed education for patient on Gestational DM. Pt verbalizes understanding. RN reported to Dr. Kruse on pt's BS of 86 2 hours post eating. RN and Dr. Kruse. in agreeance that pt's episode was likely related to a low blood sugar. Education. provided to patient on GDM diet. Maternal Triage Index - Maternal Triage Index Presenting for scheduled procedure w/no complaint: No - Stat/Priority 1 Stat Priority 1: No - Urgent/Priority 2 Urgent Priority 2: No - Prompt/Priority 3 Prompt Priority 3: No - Non-Urgent/Priority 4 Non-Urgent Priority 4: Yes Criteria Met for Priority 4: Non urgent discomforts & GDM low sugar Disposition - Disposition OB Disposition: Discharge to home Discharge Date: 04/02/22 Discharge Time: 19:10 I agree with the RN Medical Screening Exam: Yes Case reviewed; plan agreed upon as documented in EMR&OBIX.: Yes Diagnosis: VOMITING OF , UNSPECIFIED
== END 2022-04-02 19:10 | disposition home or self-care (01) ==
LOC: FBPOP 18:24
PROVIDERS: ATTEND Obstetrics & Gynecology Obstetrics
DX: O26.893 Other specified pregnancy related conditions, third trimester (principal); Z3A.34 34 weeks gestation of pregnancy; O21.9 Vomiting of pregnancy, unspecified; F17.200 Nicotine dependence, unspecified, uncomplicated; Z88.8 Allergy status to other drugs, medicaments and biological substances
CPT/HCPCS: 59025; 99213

== ENCOUNTER 2022-05-04 06:00 | Inpatient (IN) | payer OTHER, BC ==
[2022-05-04 06:18] LABS: Glucose,Whole Blood 108 mg/dL (70-110)
[2022-05-04] MEDS ORDERED: OXYTOCIN 10 UNIT/ML 1 ML VIAL IM PRN (06:18)
[2022-05-04] MEDS ORDERED: TERBUTALINE 1 MG/ML VIAL SQ PRN (06:18)
[2022-05-04] MEDS ORDERED: LIDOCAINE 0.5% (PF) 5 MG/ML (50 ML SDV) SQ PRN (06:18)
[2022-05-04] MEDS ORDERED: CARBOPROST TROMETHAMINE 250 MCG/ML 1 ML AMP IM PRN (06:18)
[2022-05-04] MEDS ORDERED: METHYLERGONOVINE 0.2 MG/ML 1 ML AMP IM PRN (06:18)
[2022-05-04] MEDS ORDERED: OXYTOCIN 30 UNITS/500 ML NS 30 UNIT in SALINE 1 500ML.BAG IV SCH ×2 (06:30→13:00)
[2022-05-04] MEDS ORDERED: AMPICILLIN 2,000 MG in SODIUM CHLORIDE 0.9% 100 ML IVPB STA (06:35)
[2022-05-04 07:37] LABS: Basophils % (A) 0 %; Eosinophils % (A) 0 %; HCT 36.7 % (34.0-46.0); HGB 12.4 gm/dL (11.4-16.0); Lymphocytes # (A) 1.6 k/uL (1.0-4.8); Lymphocytes % (A) 24 %; MCHC 33.7 g/dL (31.0-37.0); MCV 86.2 fL (80.0-100.0); Mean Platelet Volume 9.9; Monocytes # (A) 0.3 k/uL (0-1.0); Monocytes % (A) 5 %; Neutrophils # (A) 4.7 k/uL (1.3-7.7); Neutrophils % (A) 70 %; Platelet Count 141 k/uL (150-450); RBC 4.26 m/uL (3.80-5.40); RDW 14.2 % (11.5-15.5); WBC 6.7 k/uL (3.8-10.6)
[2022-05-04] MEDS ORDERED: fentaNYL (PF) 50 MCG/ML 5 ML AMP ONE (10:07)
[2022-05-04] MEDS ORDERED: SODIUM CHLORIDE 0.9% 100 ML BAG ONE (10:07)
[2022-05-04] MEDS ORDERED: ROPIVACAINE 5 MG/ML 20 ML AMPULE ONE (10:07)
[2022-05-04] MEDS ORDERED: ROPIVACAINE 100 MG, fentaNYL (PF). 200 MCG in SODIUM CHLORIDE 0.9% 76 ML EPIDURAL ONE (10:58)
[2022-05-04] MEDS: AMPICILLIN 1,000 MG in SODIUM CHLORIDE 0.9% 50 ML IVPB SCH ×2 (11:04→23:19)
[2022-05-04] MEDS ORDERED: diphenhydrAMINE 50 MG/ML 1 ML VIAL IVP PRN ×2 (12:57)
[2022-05-04] MEDS ORDERED: BENZOCAINE/MENTHOL SPRAY 1 GM/SPRAY AEROSOL TOPICAL PRN (12:57)
[2022-05-04] MEDS ORDERED: diphenhydrAMINE 50 MG CAP PO PRN (12:57)
[2022-05-04] MEDS ORDERED: ZOLPIDEM 5 MG TAB PO PRN (12:57)
[2022-05-04] MEDS ORDERED: HYDROCORTISONE 2.5% RECTAL CREAM 30 GM TUBE RECTAL PRN (12:57)
[2022-05-04] MEDS ORDERED: SIMETHICONE 80 MG CHEWABLE PO PRN (12:57)
[2022-05-04] MEDS ORDERED: LANOLIN CREAM 5 GM TUBE TOPICAL PRN (12:57)
[2022-05-04] MEDS ORDERED: diphenhydrAMINE 25 MG CAP PO PRN (12:57)
--- NOTE | 2022-05-04 13:18 | P.HPOB ---
History of Present Illness H&P Date: 05/04/22 Chief Complaint: IUP @ 39 and 0/7 weeks This is a 21-year-old at 39-0/7 weeks that presents to labor and delivery for induction of labor. Patient has been diagnosed with gestational diabetes during the and has been well controlled with diet. Patient does note good movement this morning. She denies contractions vaginal bleeding or loss of fluid. On bloodwork this patient is a blood type of O+, rubella status immune, hep [place] surface antigen negative, HIV negative, RPR is nonreactive. Review of Systems Constitutional: Denies chills, Denies fatigue, Denies fever Ears, nose, mouth and throat: Denies headache Cardiovascular: Reports leg edema Respiratory: Denies dyspnea Gastrointestinal: Denies nausea, Denies vomiting Genitourinary: Reports Past Medical History Past Medical History: Asthma, GERD/Reflux, Thyroid Disorder Additional Past Medical History / Comment(s): occipital neuralgia, vertigo History of Any Multi-Drug Resistant Organisms: None Reported Past Surgical History: No Surgical Hx Reported Past Anesthesia/Blood Transfusion Reactions: No Reported Reaction Past Psychological History: Anxiety, Depression Smoking Status: Never smoker Past Alcohol Use History: Rare Past Drug Use History: None Reported - Past Family History Mother Family Medical History: Thyroid Disorder Additional Family Medical History / Comment(s): Graves disease Father Family Medical History: Hypertension Additional Family Medical History / Comment(s): Bipolar depression Medications and Allergies Home Medications Medication Instructions Recorded Confirmed Type Levothyroxine Sodium [Synthroid] 112 mcg PO DAILY 02/22/21 05/04/22 History Vit No.179/Iron/Folic 1 tab PO DAILY 04/02/22 05/04/22 History [ Tablet] Allergies Allergy/AdvReac Type Severity Reaction Status Date / Time cyclobenzaprine Allergy Rash/Hives Verified 05/04/22 06:14 [From Flexeril] Exam Osteopathic Statement: *. No significant issues noted on an osteopathic stru ctural exam other than those noted in the History and Physical/Consult. 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 heart tones noted to be category 1 she is annette every 3 minutes. Results Result Diagrams: 05/04/22 06:20 Abnormal Lab Results - Last 24 Hours (Table) 05/04/22 Range/Units 06:20 Plt Count 141 L (150-450) k/uL Assessment and Plan (1) Term Current Visit: Yes Status: Acute Code(s): Z34.90 - ENCNTR FOR SUPRVSN OF NORMAL , UNSP, UNSP TRIMESTER SNOMED Code(s): 34090714 Plan: 21-year-old at 39 weeks gestation that presents for induction of labor. Pitocin induction of labor is begun per hospital protocol. Patient is counseled on options for analgesia during labor including epidural, Stadol, nitrous. Patient states she will consider. Anticipate spontaneous vaginal delivery later today.
--- NOTE | 2022-05-04 13:21 | P.PROBDLV ---
Vaginal Delivery Note - . Vaginal Delivery Note: Viable male delivered at 1235, weight of 7 lbs. 14 oz., Apgars of 9 and 9 at one and 5 minutes respectively. This is a 21-year-old at 39-0/7 weeks, estimated due date of 05/10. Patient presented for induction of labor this morning. Patient was admitted and Pitocin induction of labor was begun. Amniotomy was performed and clear fluid was obtained. Patient progressed in labor eventually becoming uncomfortable and requesting epidural placement. Epidural was placed without difficulty by the anesthesia department. Patient progressed to complete began pushing was placed in a modified lithotomy position and with excellent maternal effort brought the infant down to presentation. With additional pushes the anterior/posterior shoulder followed by the infants body was delivered and placed on the maternal abdomen. A spontaneous cry was appreciated. After two- minute delayed the umbilical cord was doubly clamped and cut. The placenta was delivered spontaneously intact with a three-vessel cord being noted. On inspection the patient's vaginal vault a second-degree midline laceration was appreciated. This was injected with lidocaine and repaired in the usual fashion with 3-0 Rapide. Uterus was noted be firm and below the umbilicus. The bladder had been drained for approximately 200 mL of clear yellow urine prior to repair of the vaginal laceration. All counts are correct 2 at the mid the delivery. Patient and infant tolerated delivery well and are resting complete.
[2022-05-04] MEDS: ACETAMINOPHEN TAB 325 MG TAB PO PRN ×2 (14:49→23:54)
[2022-05-04] MEDS: SENNOSIDES-DOCUSATE SODIUM 1 EACH TAB PO SCH (20:42)
[2022-05-04] MEDS: IBUPROFEN 600 MG TAB PO SCH ×2 (20:42→23:20)
[2022-05-04] MEDS: LACTATED RINGERS 1,000 ML IV SCH ×2 (23:20→23:21)
[2022-05-05] MEDS: IBUPROFEN 600 MG TAB PO SCH ×2 (04:20→07:09)
[2022-05-05] MEDS: SENNOSIDES-DOCUSATE SODIUM 1 EACH TAB PO SCH (08:16)
[2022-05-05] MEDS: ACETAMINOPHEN TAB 325 MG TAB PO PRN (08:17)
[2022-05-05 08:27] VITALS: BP 120/72; PULSE 90; RESP 18; TEMP 97.9
--- NOTE | 2022-05-05 09:50 | P.DS ---
Providers Date of admission: 05/04/22 06:00 Expected date of discharge: 05/05/22 Attending physician: Malgorzata Day Primary care physician: Stated None - Discharge Diagnosis(es) (1) Term Current Visit: Yes Status: Acute (2) Status post vaginal delivery Current Visit: Yes Status: Acute (3) Second degree perineal laceration during delivery Current Visit: Yes Status: Acute Hospital Course: This is a 21-year-old G2 now P1 011 that presented to labor and delivery at 39- 0/7 weeks for induction of labor. Patient was diagnosed with gestational diabetes and has been diet controlled through the . Patient was admitted and Pitocin induction of labor was begun. Patient did progress through labor eventually requesting epidural placement. Epidural was placed without difficulty by the anesthesia department. Patient quickly progressed to complete began pushing and had a normal spontaneous vaginal delivery of a viable male at 1235, weight of 7 lbs. 14 oz., Apgars of 9 and 9 at one and 5 minutes respectively. Patient did sustain a second-degree vaginal laceration was was repaired in the usual fashion with 3-0 Rapide. Patient's course has been uneventful. On this day #1 she is ambulating and voiding without difficulty. She is tolerating a regular diet without nausea or vomiting. She states her pain is well-controlled. Her lochia is noted to be minimal. She is breast and bottle feeding. She would like discharge home later this evening Patient Condition at Discharge: Good Plan - Discharge Summary New Discharge Prescriptions: No Action Levothyroxine Sodium [Synthroid] 112 mcg PO DAILY Vit No.179/Iron/Folic [ Tablet] 1 tab PO DAILY Discharge Medication List Levothyroxine Sodium [Synthroid] 112 mcg PO DAILY 02/22/21 [History] Vit No.179/Iron/Folic [ Tablet] 1 tab PO DAILY 04/02/22 [History] Follow up Appointment(s)/Referral(s): Malgorzata Day DO [Doctor of Osteopathic Medicine] - 4 Weeks Patient Instructions/Handouts: Vaginal Delivery (GEN), Vaginal Delivery (DC) Activity/Diet/Wound Care/Special Instructions: Zxps-rkj-slinoyp ibuprofen 600 mg as needed for pain. Patient is asked to call the office to make a 4 week check. Nothing in the vagina no tub baths or douching no intercourse for 6 weeks . Should she have any concerns prior to her check she is asked to call the office. Discharge Disposition: HOME SELF-CARE
[2022-05-05 12:10] LABS: Basophils % (A) 0 %; Eosinophils % (A) 0 %; HGB 10.3 gm/dL (11.4-16.0); Hypochromasia Slight; Lymphocytes # (A) 1.1 k/uL (1.0-4.8); Lymphocytes % (A) 15 %; MCH 29.5 pg (25.0-35.0); MCHC 33.3 g/dL (31.0-37.0); MCV 88.6 fL (80.0-100.0); Mean Platelet Volume 9.9; Monocytes # (A) 0.3 k/uL (0-1.0); Monocytes % (A) 4 %; Neutrophils # (A) 5.8 k/uL (1.3-7.7); Neutrophils % (A) 80 %; Platelet Count 133 k/uL (150-450); RDW 14.6 % (11.5-15.5); WBC 7.2 k/uL (3.8-10.6)
== END 2022-05-05 16:05 | disposition home or self-care (01) | DRG 806 ==
LOC: 4FBP 06:00
PROVIDERS: ADMIT Obstetrics & Gynecology Obstetrics; ATTEND Obstetrics & Gynecology Obstetrics
PROC: 10E0XZZ Delivery of Products of Conception, External Approach (ICD-10-PCS; principal; 2022-05-04)
PROC: 0KQM0ZZ Repair Perineum Muscle, Open Approach (ICD-10-PCS; 2022-05-04)
PROC: 3E033VJ Introduction of Other Hormone into Peripheral Vein, Percutaneous Approach (ICD-10-PCS; 2022-05-04)
PROC: 10907ZC Drainage of Amniotic Fluid, Therapeutic from Products of Conception, Via Natural or Artificial Opening (ICD-10-PCS; 2022-05-04)
DX: O24.420 Gestational diabetes mellitus in childbirth, diet controlled (principal); O99.354 Diseases of the nervous system complicating childbirth; Z37.0 Single live birth; O70.1 Second degree perineal laceration during delivery; F32.A Depression, unspecified; F41.9 Anxiety disorder, unspecified; J45.909 Unspecified asthma, uncomplicated; O99.344 Other mental disorders complicating childbirth; O99.52 Diseases of the respiratory system complicating childbirth; Z3A.39 39 weeks gestation of pregnancy; K21.9 Gastro-esophageal reflux disease without esophagitis; O99.62 Diseases of the digestive system complicating childbirth; M54.81 Occipital neuralgia
CPT/HCPCS: 83036; 85025; 86850; 86900; 86901

== ENCOUNTER → 2022-06-11 | Outpatient (CLI) | payer OTHER, BC | END | disposition home or self-care (01) | LOC: LABWHC1 13:48 | PROVIDERS: ATTEND Internal Medicine Endocrinology, Diabetes & Metabolism | DX: E03.8 Other specified hypothyroidism (principal) | CPT/HCPCS: 36415; 84443 ==

== ENCOUNTER → 2022-07-29 | Outpatient (CLI) | payer OTHER | END | disposition home or self-care (01) | LOC: LABWHC1 09:40 | PROVIDERS: ATTEND Internal Medicine Endocrinology, Diabetes & Metabolism | DX: E03.8 Other specified hypothyroidism (principal); Z86.32 Personal history of gestational diabetes | CPT/HCPCS: 36415; 83036; 84443 ==

== ENCOUNTER → 2022-08-06 | Outpatient (CLI) | payer OTHER ==
--- NOTE | 2022-08-06 19:44 | US ---
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 Patient states she just st opped taking thyroid meds 1 week ago GLAND SIZE: Right Lobe: 5.4 x 1.9 x 2.1 cm Overall Parenchyma: heterogenous Left Lobe: 4.4 x 1.7 x 1.5 cm Overall Parenchyma: heterogeneous Isthmus Thickness: 0.5 cm NODULES RIGHT: # of nodules measured on right: 1 1. 2.0 X 1.0x 0.9 cm, mid mid, solid or almost completely solid, hypoechoic nodule, which is wider t munoz tall, with smooth margins, without echogenic foci. LEFT: # of nodules measured on left: 0 ISTHMUS: # of nodules measured in the isthmus: 0 Bilateral neck scanned, no evidence of lymphadenopathy. IMPRESSION: Chronic glandular enlargement and heterogeneity. Nonspecific nodule right thyroid lobe.
== END | disposition home or self-care (01) ==
LOC: RADUSWWP 16:56
PROVIDERS: ATTEND Internal Medicine Endocrinology, Diabetes & Metabolism
DX: E04.2 Nontoxic multinodular goiter (principal); E04.9 Nontoxic goiter, unspecified
CPT/HCPCS: 76536

== ENCOUNTER → 2022-08-07 | Outpatient (CLI) | payer OTHER ==
[2022-08-07 23:26] LABS: African American GFR (CKD) 106.2 (60.0-200.0); Albumin 4.5 g/dL (3.8-4.9); Albumin/Globulin Ratio 1.96 (1.60-3.17); Anion Gap 13.5 mmol/L (10.00-18.00); BUN/Creat Ratio 17.36 Ratio (12.00-20.00); Blood Urea Nitrogen 15.5 mg/dL (9.0-27.0); Calcium 9.6 mg/dL (8.7-10.3); Carbon Dioxide 21.9 mmol/L (20.0-27.5); Follicle Stimulating Hormone 6.4 mIU/mL; Globulin 2.3 g/dL (1.6-3.3); Luteinizing Hormone 8.5 mIU/mL; Non-African American GFR(CKD) 91.6 (60.0-200.0); Potassium 4.2 mmol/L (3.5-5.5); T4, Free (Free Thyroxine) 0.82 ng/dL (0.800-1.800); Total Bilirubin 0.5 mg/dL (0.30-1.20); Total Protein 6.8 g/dL (6.2-8.2)
[2022-08-07 23:31] LABS: HCT 43.1 % (37.2-46.3); HGB 13.6 g/dL (12.0-15.0); MCHC 31.6 g/dL (32.0-37.0); MCV 85.7 fL (80.0-97.0); Mean Platelet Volume 10.6 fL (9.5-12.2); NRBC Per 100 WBC 0 /100 WBCS (0.0-0.0); Platelet Count 254 X 10*3/uL (140-440); RBC 5.03 X 10*6/uL (4.10-5.20); RDW 13.7 % (11.5-14.5); WBC 7.89 X 10*3/uL (4.50-10.00)
[2022-08-07 23:47] LABS: Prolactin 63.8 ng/mL (2.800-29.200)
[2022-08-08 02:04] LABS: ACTH 21.5 pg/mL (0.00-45.99)
[2022-08-08 16:58] LABS: Estrogens Total 155 pg/mL
== END | disposition home or self-care (01) ==
LOC: LABWHC1 16:03
PROVIDERS: ATTEND Internal Medicine Endocrinology, Diabetes & Metabolism
DX: E05.90 Thyrotoxicosis, unspecified without thyrotoxic crisis or storm (principal); R61 Generalized hyperhidrosis; R63.4 Abnormal weight loss
CPT/HCPCS: 36415; 80053; 82024; 82533; 82672; 83001; 83002; 84146; 84305; 84439; 84443; 84480; 85027

== ENCOUNTER 2023-04-18 18:45 | Inpatient (IN) | payer OTHER ==
[2023-04-18 21:37] LABS: Glucose,Whole Blood 83 mg/dL (70-110)
[2023-04-18] MEDS: LACTATED RINGERS 1,000 ML IV SCH (22:00)
[2023-04-18 22:10] LABS: Basophils % (A) 0 %; Eosinophils % (A) 0 %; HCT 37.4 % (34.0-46.0); HGB 12.6 gm/dL (11.4-16.0); Hypochromasia Slight; Lymphocytes # (A) 1.7 k/uL (1.0-4.8); Lymphocytes % (A) 17 %; MCH 28.8 pg (25.0-35.0); MCHC 33.6 g/dL (31.0-37.0); MCV 85.7 fL (80.0-100.0); Mean Platelet Volume 8.2; Monocytes # (A) 0.4 k/uL (0-1.0); Monocytes % (A) 4 %; Neutrophils # (A) 7.7 k/uL (1.3-7.7); Neutrophils % (A) 77 %; Platelet Count 169 k/uL (150-450); RBC 4.37 m/uL (3.80-5.40); RDW 14.3 % (11.5-15.5); WBC 9.9 k/uL (3.8-10.6)
[2023-04-19] MEDS ORDERED: CARBOPROST TROMETHAMINE 250 MCG/ML 1 ML AMP IM PRN (09:06)
[2023-04-19] MEDS ORDERED: TRANEXAMIC 1,000 MG/100ML-NACL 1,000 MG in EMPTY BAG 1 BAG IV PRN (09:06)
[2023-04-19] MEDS ORDERED: LIDOCAINE 0.5% (PF) 5 MG/ML (50 ML SDV) SQ PRN (09:06)
[2023-04-19] MEDS ORDERED: OXYTOCIN 10 UNIT/ML 1 ML VIAL IM PRN (09:06)
[2023-04-19] MEDS ORDERED: METHYLERGONOVINE 0.2 MG/ML 1 ML AMP IM PRN (09:06)
[2023-04-19] MEDS ORDERED: miSOPROStoL 200 MCG TAB PO PRN (09:06)
[2023-04-19] MEDS ORDERED: AMPICILLIN 2,000 MG in SODIUM CHLORIDE 0.9% 100 ML IVPB STA (09:06)
[2023-04-19] MEDS ORDERED: TERBUTALINE 1 MG/ML VIAL SQ PRN (09:06)
[2023-04-19] MEDS ORDERED: OXYTOCIN 30 UNITS/500 ML NS 30 UNIT in SALINE 1 500ML.BAG IV SCH (09:15)
--- NOTE | 2023-04-19 09:25 | P.HPOB ---
History of Present Illness H&P Date: 04/19/23 Chief Complaint: IUP at 36 and one sevenths weeks, contractions This is a 22-year-old 3 para 1011 that presented to labor and delivery last evening with complaints of regular painful contractions. Patient states contractions were every 4-7 minutes and she was noted bleeding uncomfortable with them. Patient was admitted for observation through the night and she did make a small amount of cervical change going from 3 cm in the office to 4-5 on labor and delivery. Patient noted contractions off and on through the evening. Patient is noted to be 6+ centimeters this morning. In addition patient noted a large gush of fluid early this a.m. with negative amines sure. Patient is counseled on advanced cervical dilation. And admission to labor and delivery for labor. Patient has been receiving routine care which has been Located by diagnosis of gestational diabetes, she has been well controlled with diet alone. On bloodwork, blood type of O+, rubella status immune, hepatitis B surface antigen negative, HIV negative, RPR is nonreactive, group beta strep culture is pending. Review of Systems Constitutional: Reports fatigue, Denies chills, Denies fever Ears, nose, mouth and throat: Denies headache Cardiovascular: Reports leg edema Respiratory: Denies dyspnea Gastrointestinal: Denies constipation, Denies diarrhea, Denies nausea, Denies vomiting Genitourinary: Reports Past Medical History Past Medical History: Asthma, GERD/Reflux, Thyroid Disorder Additional Past Medical History / Comment(s): occipital neuralgia, vertigo History of Any Multi-Drug Resistant Organisms: None Reported Past Surgical History: No Surgical Hx Reported Past Anesthesia/Blood Transfusion Reactions: No Reported Reaction Past Psychological History: Anxiety, Depression Smoking Status: Never smoker Past Alcohol Use History: Rare Past Drug Use History: None Reported - Past Family History Mother Family Medical History: Thyroid Disorder Additional Family Medical History / Comment(s): Graves disease Father Family Medical History: Hypertension Additional Family Medical History / Comment(s): Bipolar depression Medications and Allergies Home Medications Medication Instructions Recorded Confirmed Type Levothyroxine Sodium [Synthroid] 112 mcg PO DAILY 02/22/21 04/18/23 History Vit No.179/Iron/Folic 1 tab PO DAILY 04/02/22 04/18/23 History [ Tablet] Allergies Allergy/AdvReac Type Severity Reaction Status Date / Time cyclobenzaprine Allergy Rash/Hives Verified 04/18/23 19:05 [From Flexeril] Exam Osteopathic Statement: *. No significant issues noted on an osteopathic structural exam other than those noted in the History and Physical/Consult. 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 heart tones are noted to be category 1 and she is annette irregularly. Results Result Diagrams: 04/18/23 21:32 Assessment and Plan (1) 36 to 37 weeks gestation of Current Visit: Yes Status: Acute Code(s): [id number] - SNOMED Code(s): 359582890 (2) Prolonged latent phase of labor Current Visit: Yes Status: Acute Code(s): O63.0 - PROLONGED FIRST STAGE (OF LABOR) SNOMED Code(s): 196136752 (3) GDM (gestational diabetes mellitus), class A1 Current Visit: Yes Status: Acute Code(s): O24.410 - GESTATIONAL DIABETES MELLITUS IN , DIET CONTROLLED SNOMED Code(s): 61901389 Plan: 22 old at 36 and one sevenths weeks that presents with complaints of contractions. Patient had notable cervical change through the evening. She is currently in family dilated at 6+ centimeters. Patient is admitted with plans for amniotomy. We'll plan to treat for GBS unknown and await final culture. Plan is discussed with patient and she states understanding all questions are answered. Anticipate spontaneous vaginal delivery.
[2023-04-19] MEDS ORDERED: CALCIUM CARBONATE 500 MG CHEWABLE PO PRN (09:33)
[2023-04-19] MEDS ORDERED: SODIUM CHLORIDE 0.9% 250 ML BAG ONE (13:01)
[2023-04-19] MEDS ORDERED: fentaNYL (PF) 50 MCG/ML 5 ML AMP ONE (13:01)
[2023-04-19] MEDS ORDERED: ROPIVACAINE 5 MG/ML 30 ML VIAL ONE (13:01)
[2023-04-19] MEDS ORDERED: HYDROCORTISONE 2.5% RECTAL CREAM 30 GM TUBE RECTAL PRN (13:29)
[2023-04-19] MEDS ORDERED: ACETAMINOPHEN TAB 325 MG TAB PO PRN (13:29)
[2023-04-19] MEDS ORDERED: diphenhydrAMINE 50 MG CAP PO PRN (13:29)
[2023-04-19] MEDS ORDERED: ZOLPIDEM 5 MG TAB PO PRN (13:29)
[2023-04-19] MEDS ORDERED: SIMETHICONE 80 MG CHEWABLE PO PRN (13:29)
[2023-04-19] MEDS ORDERED: LANOLIN CREAM 5 GM TUBE TOPICAL PRN (13:29)
[2023-04-19] MEDS ORDERED: diphenhydrAMINE 50 MG/ML 1 ML VIAL IVP PRN ×2 (13:29)
[2023-04-19] MEDS ORDERED: diphenhydrAMINE 25 MG CAP PO PRN (13:29)
[2023-04-19] MEDS ORDERED: BENZOCAINE/MENTHOL SPRAY 1 GM/SPRAY AEROSOL TOPICAL PRN (13:29)
--- NOTE | 2023-04-19 13:32 | P.PROBDLV ---
Vaginal Delivery Note - . Vaginal Delivery Note: 22-year-old 011 that presented to labor and delivery last evening with complaints of regular painful contractions. Patient made slow progress through the night noted to be 6+ centimeters this morning. Patient underwent amniotomy were copious clear fluid was obtained. Patient progressed through labor eventually becoming uncomfortable was noted to be 7+ centimeters and she requested her epidural. Soon after epidural was placed patient noted rectal pressure and felt the urge to push. With excellent maternal effort patient had a normal spontaneous vaginal delivery of a viable female at 1312, loose nuchal cord was delivered through. Spontaneous cry was noted at . Weight is pending. After two-minute delayed the umbo cord was doubly clamped and cut. The infant was handed off to awaiting RN. The placenta was delivered spontaneously intact with a three-vessel cord being noted. A small gush of blood was appreciated the uterus firmed with fundal massage. On inspection the patient's vaginal vault a first-degree laceration was appreciated, and repaired in the usual fashion with 3-0 Rapide. A qsuwyt-or-djyle suture was used to obtain closure. Hemostasis was appreciated after closure. Uterus is noted to be firm and below the umbilicus. Estimated blood loss 200 mL. Patient and infant tolerated delivery well and are resting comfortably.
[2023-04-19 13:51] VITALS: RESP 16
[2023-04-19] MEDS: AMPICILLIN 1,000 MG in SODIUM CHLORIDE 0.9% 50 ML IVPB SCH ×2 (14:28→19:35)
[2023-04-19] MEDS: LACTATED RINGERS 1,000 ML IV SCH ×3 (14:28→19:36)
[2023-04-19] MEDS: IBUPROFEN 600 MG TAB PO SCH ×2 (16:17→22:11)
[2023-04-19] MEDS: SENNOSIDES-DOCUSATE SODIUM 1 EACH TAB PO SCH (19:47)
[2023-04-20] MEDS: IBUPROFEN 600 MG TAB PO SCH ×2 (04:30→08:11)
[2023-04-20 04:33] VITALS: PULSE 92
[2023-04-20] MEDS: SENNOSIDES-DOCUSATE SODIUM 1 EACH TAB PO SCH (08:14)
[2023-04-20 08:28] VITALS: BP 110/72; TEMP 97.8
--- NOTE | 2023-04-20 09:35 | P.DS ---
Providers Date of admission: 04/18/23 21:09 Expected date of discharge: 04/20/23 Attending physician: Malgorzata Day Primary care physician: Stated None - Discharge Diagnosis(es) (1) 36 to 37 weeks gestation of Current Visit: Yes Status: Acute (2) Prolonged latent phase of labor Current Visit: Yes Status: Acute (3) GDM (gestational diabetes mellitus), class A1 Current Visit: Yes Status: Acute (4) Obstetric vaginal laceration with first degree perineal laceration Current Visit: Yes Status: Acute (5) Status post vaginal delivery Current Visit: No Status: Acute Hospital Course: 22yo G3 [id number] that presented to labor and delivery friday night with complaints of contractions. She was observed overnight and did make continued cervical change. she was noted to be 6+ cm in the am. She was counseled on advanced cervical dilation.. She was admitted and amniotomy was preformed, copious clear fluid is noted. She was noted to be annette irregular but breathing through the contractions. Pitocin augmentation is begun. She did become was noted to be 7+ centimeters. Patient did elect epidural. Anesthesia presented and epidural was placed after the test dose was given patient noted extreme rectal pressure and was noted to be completely dilated. Patient began pushing and with excellent maternal effort had a normal spent taste vaginal delivery of a viable female at 1312, weight of 7 pounds 2.3 ounces. Spontaneous cry was noted. After two-minute delayed the umbilical cord was doubly clamped and cut. The placenta was delivered spontaneously intact with three-vessel cord being noted. Infant was taken over to the warmer for further evaluation given gestational age. On inspection the patient's vaginal vault a small first-degree vaginal laceration was appreciated. This was repaired in usual fashion with 3-0 Rapide. Hemostasis was noted. The uterus is noted be firm and below the umbilicus. Estimated blood loss 200 mL. Patient and infant tolerated delivery well and are resting comfortably. All counts were correct 2 at the end of the delivery. Patient Condition at Discharge: Good Plan - Discharge Summary New Discharge Prescriptions: No Action Levothyroxine Sodium [Synthroid] 112 mcg PO DAILY Vit No.179/Iron/Folic [ Tablet] 1 tab PO DAILY Discharge Medication List Levothyroxine Sodium [Synthroid] 112 mcg PO DAILY 02/22/21 [History] Vit No.179/Iron/Folic [ Tablet] 1 tab PO DAILY 04/02/22 [History] Follow up Appointment(s)/Referral(s): Malgorzata Day DO [Doctor of Osteopathic Medicine] - 6 Weeks Patient Instructions/Handouts: Vaginal Delivery (DC), Vaginal Delivery (GEN) Activity/Diet/Wound Care/Special Instructions: No tub baths or intercourse until 6 weeks . Eaxp-exp-xnywubn ibuprofen as needed for pain. Patient is to follow-up in the office for routine 6 week check. Discharge Disposition: HOME SELF-CARE
== END 2023-04-20 12:00 | disposition home or self-care (01) | DRG 807 ==
LOC: FBPOP 18:45 → INTOOBSV 21:09 → 4FBP 21:09 → OBSVTOIN 21:09 → UNDOADMOB 21:09 → OBSVTOIN 23:28 → 4FBP 23:28 → INTOOBSV 23:28 → UNDODISOB 04-20 12:00 → UNDODISIN 04-20 12:00
PROVIDERS: ADMIT Obstetrics & Gynecology Obstetrics; ATTEND Obstetrics & Gynecology Obstetrics
PROC: 10E0XZZ Delivery of Products of Conception, External Approach (ICD-10-PCS; principal; 2023-04-19)
PROC: 0HQ9XZZ Repair Perineum Skin, External Approach (ICD-10-PCS; 2023-04-19)
DX: O24.429 Gestational diabetes mellitus in childbirth, unspecified control (principal); Z37.0 Single live birth; O63.0 Prolonged first stage (of labor); O69.81X0 Labor and delivery complicated by cord around neck, without compression, not applicable or unspecified; O70.0 First degree perineal laceration during delivery; O99.52 Diseases of the respiratory system complicating childbirth; J45.909 Unspecified asthma, uncomplicated; Z3A.37 37 weeks gestation of pregnancy; Z79.890 Hormone replacement therapy
CPT/HCPCS: 59025; 85025; 86850; 86900; 86901; 88307; 99213

== ENCOUNTER → 2023-08-08 | Outpatient (CLI) | payer OTHER ==
--- NOTE | 2023-08-08 09:37 | CT ---
EXAMINATION TYPE: CT sinus wo con DATE OF EXAM: 08/08/2023 COMPARISON: None HISTORY: 22-year-old female J32.0, Chronic maxillary sinusitis CT DLP: 540 mGycm Automated exposure control for dose reduction was used. TECHNIQUE: Noncontrast axial views of the paranasal sinuses were obtained. Coronal and sagittal recon structions performed. FINDINGS: PARANASAL SINUSES: There are a few scattered small mucosal retention cyst within the right greater than left maxillary s inuses, measuring up to 1.1 cm on the right and 7 mm on the left. Some minimal frothy opacification anterior left ethmoid air cells and posterior right ethmoid air sanjay ls. Frontal and sphenoid sinuses are well pneumatized. There is slight leftward nasal septal deviation. We note a prominent inferior extension of the maxillary sinuses to below the level of the nasal cavit y. Secondarily, there is a midline septum between the inferior aspect of the bilateral maxillary sinu sitis, refractory to coronal image 41. There is no air-fluid level. Reactive joey- osteogenesis is not seen. There is no destruction of the osseous hernandez of the paranasal sinuses. The osteomeatal complexes are patent. The imaged brain and orbits show no gross adenopathy. The visualized small portion of the mastoid air cells appear pneumatized. Reformatted images confirm above findings. IMPRESSION: 1. A few scattered small mucosal retention cysts within the maxillary sinuses measuring up to 1.1 cm on the right and 7 mm on the left. 2. Minimal frothy opacification anterior left ethmoid air cells and posterior right ethmoid air cells . This is minimal change. 3. Prominent inferior extension of the maxillary sinuses below the level of the nasal cavity. Seconda rily, the inferior maxillary sinuses, together at an inferior midline septum, coronal image 41. 4. Slight leftward nasal septal deviation.
== END | disposition home or self-care (01) ==
LOC: RADCTMAIN 08:15
PROVIDERS: ATTEND Otolaryngology
DX: J34.1 Cyst and mucocele of nose and nasal sinus (principal); H74.8X2 Other specified disorders of left middle ear and mastoid; J34.89 Other specified disorders of nose and nasal sinuses; J34.2 Deviated nasal septum; J32.0 Chronic maxillary sinusitis
CPT/HCPCS: 70486

== ENCOUNTER → 2023-09-29 | Outpatient (CLI) | payer OTHER ==
[2023-09-29 14:39] LABS: Partial Thromboplastin Time 24.5 sec (22.0-30.0); Prothrombin Time 11.2 sec (10.0-12.5)
== END | disposition home or self-care (01) ==
LOC: LABWHC1 14:02
PROVIDERS: ATTEND Internal Medicine
DX: T14.8XXA Other injury of unspecified body region, initial encounter (principal); R21 Rash and other nonspecific skin eruption; X58.XXXA Exposure to other specified factors, initial encounter
CPT/HCPCS: 36415; 85610; 85730; 86038

== ENCOUNTER → 2023-09-30 | Outpatient (CLI) | payer OTHER ==
--- NOTE | 2023-09-30 19:08 | US ---
EXAMINATION TYPE: US thyroid st tissue head/neck DATE OF EXAM: 09/30/2023 COMPARISON: NONE CLINICAL INDICATION: Female, 22 years old with history of E04.1 THYROID NODULE; hashimotos GLAND SIZE: Right Lobe: 5.4 x 2.4 x 2.0 cm Overall Parenchyma: heterogeneous Left Lobe: 5.1 x 1.7 x 1.8 cm Overall Parenchyma: heterogeneous Isthmus Thickness: .5 cm NODULES RIGHT: # of nodules measured on right: 0 LEFT: # of nodules measured on left: 0 ISTHMUS: # of nodules measured in the isthmus: 0 Bilateral neck scanned, no evidence of lymphadenopathy. IMPRESSION: No suspicious thyroid nodules.
== END | disposition home or self-care (01) ==
LOC: RADUSWWP 16:28
PROVIDERS: ATTEND Internal Medicine
DX: E04.1 Nontoxic single thyroid nodule (principal); E06.3 Autoimmune thyroiditis
CPT/HCPCS: 76536

== ENCOUNTER → 2023-11-25 | Outpatient (CLI) | payer OTHER | END | disposition home or self-care (01) | LOC: LABWHC1 13:27 | PROVIDERS: ATTEND Internal Medicine | DX: E04.1 Nontoxic single thyroid nodule (principal) | CPT/HCPCS: 36415; 84443 ==

== ENCOUNTER → 2024-05-27 | Outpatient (CLI) | payer OTHER ==
--- NOTE | 2024-05-27 16:27 | US ---
EXAMINATION TYPE: US thyroid st tissue head/neck DATE OF EXAM: 05/27/2024 COMPARISON: Multiple thyroid ultrasounds most recent 09/30/2023 CLINICAL INDICATION: Female, 23 years old with history of E04.1 NONTOX SINGLE THY NOD; TECHNIQUE: Grayscale and color Doppler imaging of the thyroid gland. FINDINGS: GLAND SIZE: Right Lobe: 5.3 x 2.0 x 2.6 cm, enlarged Overall Parenchyma: heterogeneous Left Lobe: 4.6 x 1.5 x 1.7 cm Overall Parenchyma: heterogeneous Isthmus Thickness: 0.5 cm NODULES RIGHT: # of nodules measured on right: 1 1. 1.8 X 1.2 x 1.3 cm, mid, solid or almost completely solid, isoechoic nodule, which is wider than tall, with ill-defined margins, without echogenic foci. TR 3. Prior size: no previous LEFT: # of nodules measured on left: 0 ISTHMUS: # of nodules measured in the isthmus: 0 Bilateral neck scanned, no evidence of lymphadenopathy. IMPRESSION: Enlarged diffusely heterogenous thyroid gland with more defined 1.8 cm right thyroid lobe TR 3 nodule . ACR TI-RADS LEVEL: TR-RADS 3 - Follow if > 1.5 cm, FNA if > 2.5 cm *Highest TI-RADS level nodule reported [facility], , 05/27/2024 4:25 PM
== END | disposition home or self-care (01) ==
LOC: RADUSWWP 15:48
PROVIDERS: ATTEND Family Medicine
DX: E04.1 Nontoxic single thyroid nodule (principal)
CPT/HCPCS: 76536

== ENCOUNTER 2024-07-29 10:02 | Emergency (ER) | payer OTHER ==
[2024-07-29 10:11] VITALS: RESP 18
--- NOTE | 2024-07-29 10:27 | ED ---
Abdominal Pain HPI - General Chief Complaint: Abdominal Pain Stated Complaint: Abd pain(Preg not sure how far) Time Seen by Provider: 07/29/24 10:23 Source: patient, RN notes reviewed Mode of arrival: ambulatory Limitations: no limitations - History of Present Illness Initial Comments: 23-year-old female presenting for abdominal pain in . Patient states she had a positive test 1 week ago. For the past few weeks, she states she has been experiencing intermittent, random sharp pains in her left lower abdomen that radiates to her right shoulder. States that the episodes are brief. She is not currently experiencing abdominal pain. Denies vaginal bleeding or spotting. She was recently treated for a UTI by her PCP and reports the antibiotics that were used were unsafe in however cannot recall the name of it. She followed up again at her PCP 3 days ago where they switched her to macrobid which she is currently taking. States she is not sure how far along she is, however last menstrual period was 1217. Dr. Day has been her OB in the past and she is currently trying to schedule an appointment with her for this . - Related Data Home Medications Medication Instructions Recorded Confirmed Cefdinir [Omnicef] 300 mg PO Q12HR 07/29/24 07/29/24 Ergocalciferol (Vitamin D2) 1,250 mcg PO DIRECTED 07/29/24 07/29/24 [Drisdol (50,000 Iu)] Allergies Allergy/AdvReac Type Severity Reaction Status Date / Time amoxicillin Allergy Rash/Hives Verified 07/29/24 11:19 cyclobenzaprine Allergy Rash/Hives Verified 07/29/24 11:19 [From Flexeril] Review of Systems ROS Statement: Those systems with pertinent positive or pertinent negative responses have been documented in the HPI. ROS Other: All systems not noted in ROS Statement are negative. Past Medical History Past Medical History: Asthma, GERD/Reflux, Thyroid Disorder Additional Past Medical History / Comment(s): occipital neuralgia, vertigo History of Any Multi-Drug Resistant Organisms: None Reported Past Surgical History: No Surgical Hx Reported Past Anesthesia/Blood Transfusion Reactions: No Reported Reaction Past Psychological History: Anxiety, Depression Smoking Status: Never smoker Past Alcohol Use History: Rare Past Drug Use History: None Reported - Past Family History Mother Family Medical History: Thyroid Disorder Additional Family Medical History / Comment(s): Graves disease Father Family Medical History: Hypertension Additional Family Medical History / Comment(s): Bipolar depression General Exam Limitations: no limitations General appearance: alert, in no apparent distress Head exam: Present: atraumatic, normocephalic, normal inspection Eye exam: Present: normal appearance, PERRL, EOMI. Absent: scleral icterus, conjunctival injection, periorbital swelling ENT exam: Present: normal exam, mucous membranes moist GI/Abdominal exam: Present: soft, normal bowel sounds. Absent: distended, tenderness, guarding, rebound, rigid Back exam: Absent: CVA tenderness (R), CVA tenderness (L) Neurological exam: Present: alert, oriented X3 Psychiatric exam: Present: normal affect, normal mood Skin exam: Present: warm, dry, intact, normal color. Absent: rash Course Vital Signs 07/29/24 07/29/24 10:05 12:06 Temperature 97.4 F L Pulse Rate 85 79 Respiratory 18 18 Rate Blood Pressure 122/69 115/59 O2 Sat by Pulse 98 100 Oximetry Medical Decision Making - Medical Decision Making Was pt. sent in by a medical professional or institution (, PA, SHOE LINING FITTER, urgent care, hospital, or correction...) When possible be specific @ -No Did you speak to anyone other than the patient for history (EMS, parent, family, police, friend...)? What history was obtained from this source @ -No Did you review nursing and triage notes (agree or disagree)? Why? @ -I reviewed and agree with nursing and triage notes Were old charts reviewed (outside hosp., previous admission, EMS record, old EKG, old radiological studies, urgent care reports/EKG's, correction records)? Report findings @ -No old charts were reviewed Differential Diagnosis (chest pain, altered mental status, abdominal pain women, abdominal pain men, vaginal bleeding, weakness, fever, dyspnea, syncope, headache, dizziness, GI bleed, back pain, seizure, CVA, palpatations, mental health, musculoskeletal)? @ -Differential Abdominal Pain Women: Ectopic , appendicitis, Cholecystitis, diverticulosis, ischemic bowel, pancreatitis, hepatitis, UTI, gastroenteritis, AAA, incarcerated hernia, bowel obstruction, constipation, inflammatory bowel, hepatitis, peptic ulcer disease, splenic infarction, perforated viscus, vulvitis, ovarian torsion, PID, kidney stone, placenta abruption, this is not meant to be an all-inclusive list EKG interpreted by me (3pts min.). @ -None X-rays interpreted by me (1pt min.). @ -None done CT interpreted by me (1pt min.). @ -None done U/S interpreted by me (1pt. min.). @ -Pelvic ultrasound small anechoic intrauterine cystic structure without evidence for yolk sac or fetus at this time What testing was considered but not performed or refused? (CT, X-rays, U/S, labs)? Why? @ -None What meds were considered but not given or refused? Why? @ -None Did you discuss the management of the patient with other professionals (professionals i.e. , PA, SHOE LINING FITTER, lab, RT, psych nurse, social organization professor, fireworks inspector, teacher, deputy juvenile officer, cyanide case hardener)? Give summary @ -No Was smoking cessation discussed for >3mins.? @ -No Was critical care preformed (if so, how long)? @ -No Were there social determinants of health that impacted care today? How? (Homelessness, low income, unemployed, alcoholism, drug addiction, transportat ion, low edu. Level, literacy, decrease access to med. care, fpc, rehab)? @ -No Was there de-escalation of care discussed even if they declined (Discuss DNR or withdrawal of care, Hospice)? DNR status @ -No What co-morbidities impacted this encounter? (DM, HTN, Smoking, COPD, CAD, Cancer, CVA, ARF, Chemo, Hep., AIDS, mental health diagnosis, sleep apnea, morbid obesity)? @ -None Was patient admitted / discharged? Hospital course, mention meds given and route, prescriptions, significant lab abnormalities, going to OR and other pertinent info. @ - discharged. 23-year-old female presenting for left-sided abdominal pain in x 3 weeks. Denies vaginal bleeding. Vital signs within acceptable limits. Abdomen soft and nontender to palpation. Small IV fluid bolus provided. Lab work largely unremarkable. hCG level 3200. Urinalysis highly contaminated sample however not overly indicative of urinary tract infection, culture sent. Pelvic ultrasound revealed small anechoic intrauterine cystic structure without evidence for yolk sac or fetus at this time. Correlating with hCG levels, this is likely due to early however results discussed with patient and patient was placed on ectopic precautions including repeat hCG levels and ultrasound. Strict return precautions discussed with patient as well as follow-up care. Case was discussed with my ED attending Dr. Rush Undiagnosed new problem with uncertain prognosis? @ -No Drug Therapy requiring intensive monitoring for toxicity (Heparin, Nitro, Insulin, Cardizem)? @ -No Were any procedures done? @ -No Diagnosis/symptom? @ -Early Acute, or Chronic, or Acute on Chronic? @ -Acute Uncomplicated (without systemic symptoms) or Complicated (systemic symptoms)? @ -Uncomplicated Side effects of treatment? @ -No Exacerbation, Progression, or Severe Exacerbation? @ -No Poses a threat to life or bodily function? How? (Chest pain, [place], [place], pneumonia, PE, COPD, DKA, ARF, appy, cholecystitis, CVA, Diverticulitis, Homicidal, Suicidal, threat to staff... and all critical care pts) @ -Unlikely at this time - Lab Data Result diagrams: 07/29/24 11:20 07/29/24 11:20 Lab Results 07/29/24 07/29/24 07/29/24 Range/Units 11:20 11:20 11:20 WBC 6.1 (3.8-10.6) k/uL RBC 4.77 (3.80-5.40) m/uL Hgb 13.6 (11.4-16.0) gm/dL Hct 40.6 (34.0-46.0) % MCV 85.0 (80.0-100.0) fL MCH 28.4 (25.0-35.0) pg MCHC 33.5 (31.0-37.0) g/dL RDW 13.6 (11.5-15.5) % Plt Count 183 (150-450) k/uL MPV 7.9 Neutrophils % 71 % Lymphocytes % 23 % Monocytes % 4 % Eosinophils % 1 % Basophils % 0 % Neutrophils # 4.3 (1.3-7.7) k/uL Lymphocytes # 1.4 (1.0-4.8) k/uL Monocytes # 0.3 (0-1.0) k/uL Eosinophils # 0.0 (0-0.7) k/uL Basophils # 0.0 (0-0.2) k/uL Sodium 135 L (137-145) mmol/L Potassium 4.4 (3.5-5.1) mmol/L Chloride 103 (98-107) mmol/L Carbon Dioxide 22 (22-30) mmol/L Anion Gap 10 mmol/L BUN 10 (7-17) mg/dL Creatinine 0.66 (0.52-1.04) mg/dL Est GFR (CKD-EPI)AfAm >90 (>60 ml/min/1.73 sqM) Est GFR (CKD-EPI)NonAf >90 (>60 ml/min/1.73 sqM) Glucose 85 (74-99) mg/dL Plasma Lactic Acid Bharathi 0.6 L (0.7-2.0) mmol/L Calcium 9.0 (8.4-10.2) mg/dL Total Bilirubin 1.2 (0.2-1.3) mg/dL AST 19 (14-36) U/L ALT 14 (4-34) U/L Alkaline Phosphatase 54 (38-126) U/L Total Protein 6.6 (6.3-8.2) g/dL Albumin 3.9 (3.5-5.0) g/dL HCG, Quant 3200.2 mIU/mL Urine Color Urine Appearance (Clear) Urine pH (5.0-8.0) Ur Specific [place] (1.001-1.035) Urine Protein (Negative) Urine Glucose (UA) (Negative) Urine Ketones (Negative) Urine Blood (Negative) Urine Nitrite (Negative) Urine Bilirubin (Negative) Urine Urobilinogen (<2.0) mg/dL Ur Leukocyte Esterase (Negative) Urine RBC (0-5) /hpf Urine WBC (0-5) /hpf Ur Squamous Epith Cells (0-4) /hpf Urine Mucus (None) /hpf 07/29/24 Range/Units 11:22 WBC (3.8-10.6) k/uL RBC (3.80-5.40) m/uL Hgb (11.4-16.0) gm/dL Hct (34.0-46.0) % MCV (80.0-100.0) fL MCH (25.0-35.0) pg MCHC (31.0-37.0) g/dL RDW (11.5-15.5) % Plt Count (150-450) k/uL MPV Neutrophils % % Lymphocytes % % Monocytes % % Eosinophils % % Basophils % % Neutrophils # (1.3-7.7) k/uL Lymphocytes # (1.0-4.8) k/uL Monocytes # (0-1.0) k/uL Eosinophils # (0-0.7) k/uL Basophils # (0-0.2) k/uL Sodium (137-145) mmol/L Potassium (3.5-5.1) mmol/L Chloride (98-107) mmol/L Carbon Dioxide (22-30) mmol/L Anion Gap mmol/L BUN (7-17) mg/dL Creatinine (0.52-1.04) mg/dL Est GFR (CKD-EPI)AfAm (>60 ml/min/1.73 sqM) Est GFR (CKD-EPI)NonAf (>60 ml/min/1.73 sqM) Glucose (74-99) mg/dL Plasma Lactic Acid Bharathi (0.7-2.0) mmol/L Calcium (8.4-10.2) mg/dL Total Bilirubin (0.2-1.3) mg/dL AST (14-36) U/L ALT (4-34) U/L Alkaline Phosphatase (38-126) U/L Total Protein (6.3-8.2) g/dL Albumin (3.5-5.0) g/dL HCG, Quant mIU/mL Urine Color Light Yellow Urine Appearance Cloudy H (Clear) Urine pH 5.5 (5.0-8.0) Ur Specific [place] 1.022 (1.001-1.035) Urine Protein Negative (Negative) Urine Glucose (UA) Negative (Negative) Urine Ketones 1+ H (Negative) Urine Blood Negative (Negative) Urine Nitrite Negative (Negative) Urine Bilirubin Negative (Negative) Urine Urobilinogen <2.0 (<2.0) mg/dL Ur Leukocyte Esterase Large H (Negative) Urine RBC 2 (0-5) /hpf Urine WBC 13 H (0-5) /hpf Ur Squamous Epith Cells 11 H (0-4) /hpf Urine Mucus Occasional H (None) /hpf Disposition Clinical Impression: Early stage of Disposition: HOME SELF-CARE Condition: Stable Instructions (If sedation given, give patient instructions): Abdominal Pain in (ED) Additional Instructions: Follow-up with Dr. Day as discussed for repeat hCG and ultrasound. Your hCG levels today were 3200. Please return to the Emergency Department if symptoms worsen or any other concerns. Is patient prescribed a controlled substance at d/c from ED?: No Referrals: Ricardo Mayen MD [Primary Care Provider] - 1-2 days Time of Disposition: 12:37
[2024-07-29 11:33] LABS: Basophils % (A) 0 %; Eosinophils % (A) 1 %; HCT 40.6 % (34.0-46.0); HGB 13.6 gm/dL (11.4-16.0); Lymphocytes # (A) 1.4 k/uL (1.0-4.8); Lymphocytes % (A) 23 %; MCH 28.4 pg (25.0-35.0); MCHC 33.5 g/dL (31.0-37.0); Mean Platelet Volume 7.9; Monocytes # (A) 0.3 k/uL (0-1.0); Monocytes % (A) 4 %; Neutrophils # (A) 4.3 k/uL (1.3-7.7); Neutrophils % (A) 71 %; Platelet Count 183 k/uL (150-450); RBC 4.77 m/uL (3.80-5.40); RDW 13.6 % (11.5-15.5); WBC 6.1 k/uL (3.8-10.6)
--- NOTE | 2024-07-29 11:38 | US ---
EXAMINATION TYPE: Transabdominal DATE OF EXAM: 07/29/2024 11:06 AM COMPARISON: NONE CLINICAL INDICATION: Female, 23 years old with history of abdominal pain in ; left side pelv ic pain, just found out she is , currently being treated for UTI TECHNIQUE: Transabdominal (TA) with grayscale and color Doppler imaging including first trimester pre gnancy. FINDINGS: EXAM MEASUREMENTS: GESTATIONAL AGE / DATING Physician Established: Not yet established Dates by LMP: (5 weeks/2 days) EDC: 03/29/25 Dates by First Scan: No previous this is first scan Dates by Current Scan for: (5 weeks/2 days) EDC: 03/29/25 MATERNAL ANATOMY Uterus: 8.3x5.5x6.9cm Right Ovary: 3.4x2.4x1.5cm Left Ovary: 3.0x3.1x1.4cm Post CDS / Adnexa: wnl Presence of free fluid: no Presence of corpus luteal cyst: no Presence of subchorionic bleed: no GESTATION / SURVEY CRL: n/a Gestational Sac morphology: Normal Gestational Sac MSD: 0.74 (5 weeks/2 days) Yolk Sac (normal less than 6mm): n/a IUP: GS visualized Date of LMP: 06/22/24 Beta HcG (if available): Not available at this time IMPRESSION: 1. Small anechoic intrauterine cystic structure without evidence for yolk sac or fetus at this time. This is thought to represent an early gestational sac with a positive beta hCG, however ectopic pregn calvin and abnormal intrauterine cannot be ruled out based on this exam alone. Follow-up with pelvic ultrasound in 7-10 days and serial beta-hCG studies are recommended to en sure further develo pment of the fetus. [facility], , 07/29/2024 11:36 AM
[2024-07-29 11:54] LABS: Appearance,Urine Cloudy (Clear); Bilirubin,Urine Negative (Negative); Blood,Urine Negative (Negative); Color,Urine Light Yellow; Glucose,Urine (UA) Negative (Negative); Ketones,Urine 1+ (Negative); Leukocyte Esterase,Urine Large (Negative); Mucus,Urine Occasional /hpf; Nitrite,Urine Negative (Negative); PH, Urine 5.5 (5.0-8.0); Protein,Urine Negative (Negative); RBC,Urine 2 /hpf (0-5); Specific Gravity,Urine 1.022 (1.001-1.035); Squamous Epithelial Cell,Urine 11 /hpf (0-4); Urobilinogen,Urine <2.0 mg/dL (<2.0); WBC,Urine 13 /hpf (0-5)
[2024-07-29 11:56] LABS: ALT 14 U/L (4-34); AST 19 U/L (14-36); African American GFR (CKD) >90 (>60 ml/min/1.73 sqM); Albumin 3.9 g/dL (3.5-5.0); Alkaline Phosphatase 54 U/L (38-126); Anion Gap 10 mmol/L; Blood Urea Nitrogen 10 mg/dL (7-17); Carbon Dioxide 22 mmol/L (22-30); Chloride 103 mmol/L (98-107); Glucose 85 mg/dL (74-99); Non-African American GFR(CKD) >90 (>60 ml/min/1.73 sqM); Potassium 4.4 mmol/L (3.5-5.1); Sodium 135 mmol/L (137-145); Total Bilirubin 1.2 mg/dL (0.2-1.3); Total Protein 6.6 g/dL (6.3-8.2)
[2024-07-29 12:11] LABS: HCG,Quantitative Serum 3200.2 mIU/mL
[2024-07-29] MEDS: SODIUM CHLORIDE 0.9% 500 ML 500 ML IV STA (12:11)
[2024-07-29 12:45] VITALS: BP 115/67; PULSE 69; TEMP 97.3
== END 2024-07-29 12:44 | disposition home or self-care (01) ==
LOC: EC 10:02
DX: O26.891 Other specified pregnancy related conditions, first trimester (principal); R10.32 Left lower quadrant pain; Z88.8 Allergy status to other drugs, medicaments and biological substances; Z3A.00 Weeks of gestation of pregnancy not specified
CPT/HCPCS: 36415; 76801; 80053; 81001; 83605; 84702; 85025; 86900; 86901; 87086; 99284

== ENCOUNTER 2024-08-27 18:44 | Emergency (ER) | payer OTHER ==
[2024-08-27 19:26] VITALS: RESP 18; TEMP 97.8
--- NOTE | 2024-08-27 20:54 | US ---
EXAMINATION TYPE: Transabdominal DATE OF EXAM: 08/27/2024 8:36 PM COMPARISON: US CLINICAL INDICATION: Female, 23 years old with history of first trimester bleeding; Pt states light v aginal bleeding, possibly passed tissue today TECHNIQUE: Transabdominal (TA) with grayscale and color Doppler imaging including first trimester pre gnancy. FINDINGS: EXAM MEASUREMENTS: GESTATIONAL AGE / DATING Physician Established: (9 weeks/3 days) EDC: 03/29/2025 Dates by LMP: (9 weeks/3 days) EDC: 03/29/2025 Dates by First Scan: (9 weeks/3 days) EDC: 03/29/2025 Dates by Current Scan for: (8 weeks/1 days) EDC: 04/07/2025 MATERNAL ANATOMY Uterus: 9.7 x 5.5 x 6.9 cm Right Ovary: 2.4 x 1.8 x 1.3 Left Ovary: 3.0 x 2.1 x 1.7 Post CDS / Adnexa: wnl Presence of free fluid: No Presence of corpus luteal cyst: Left Ovary= 1.9 x 1.6 x 1.7 cm Presence of subchorionic bleed: No GESTATION / SURVEY CRL: 1.7 cm (8 weeks/1 days) Gestational Sac morphology: unremarkable Yolk Sac (normal less than 6mm): Not visualized Cardiac Activity/Heart Rate: Unable to detect cardiac motion with color or pulsed doppler IUP: No cardiac activity noted on today's scan. Question demise. Beta HcG (if available): Not available at this time IMPRESSION: 1. Single intrauterine gestation estimated at 8 weeks 1 day gestation based on crown-rump length. 2. Cardiac activity could not be identified during this examination. Intrauterine demise should be considered [facility], , 08/27/2024 8:52 PM
[2024-08-27 22:52] LABS: Appearance,Urine Clear (Clear); Bilirubin,Urine Negative (Negative); Blood,Urine Trace (Negative); Color,Urine Light Yellow; Glucose,Urine (UA) Negative (Negative); Ketones,Urine 1+ (Negative); Leukocyte Esterase,Urine Negative (Negative); Mucus,Urine Rare /hpf; Nitrite,Urine Negative (Negative); Protein,Urine Negative (Negative); RBC,Urine <1 /hpf (0-5); Squamous Epithelial Cell,Urine 1 /hpf (0-4); Urobilinogen,Urine <2.0 mg/dL (<2.0); WBC,Urine 2 /hpf (0-5)
--- NOTE | 2024-08-27 22:58 | ED ---
Female Urogenital HPI - General Chief complaint: Vaginal Bleeding Stated complaint: poss miscarriage Time Seen by Provider: 08/27/24 19:42 Source: patient Mode of arrival: ambulatory Limitations: no limitations - History of Present Illness Initial comments: This patient is a 23-year-old woman, , approximately 9+ weeks by previous ultrasound who presents to have evaluation of suprapubic pressure associated with some dark brown bleeding that had started about 4 hours before she arrived here. The patient states that the bleeding initially was heavier but then slowed. She states that the symptoms are somewhat similar to what she had prior to her previous miscarriage so she arrives to have evaluation for that reason. She has not noted fever or chills. No vomiting or diarrhea. She has not noted urinary symptoms. MD Complaint: vaginal bleeding Onset/Timin -: hour(s) Location: suprapubic Radiation: non-radiating Severity: mild Quality: dull Consistency: now resolved Improves with: none Worsens with: none Patient : Yes Number of weeks : 9 Associated Symptoms: vaginal bleeding - Related Data : 5 Para: 2 A: 2 Home Medications Medication Instructions Recorded Confirmed Cefdinir [Omnicef] 300 mg PO Q12HR 07/29/24 07/29/24 Ergocalciferol (Vitamin D2) 1,250 mcg PO DIRECTED 07/29/24 07/29/24 [Drisdol (50,000 Iu)] Allergies Allergy/AdvReac Type Severity Reaction Status Date / Time amoxicillin Allergy Rash/Hives Verified 07/29/24 11:19 cyclobenzaprine Allergy Rash/Hives Verified 07/29/24 11:19 [From Flexeril] Review of Systems ROS Statement: Those systems with pertinent positive or pertinent negative responses have been documented in the HPI. ROS Other: All systems not noted in ROS Statement are negative. Constitutional: Denies: fever, chills, weakness Respiratory: Denies: cough, dyspnea Cardiovascular: Denies: chest pain, palpitations, edema Gastrointestinal: Reports: abdominal pain. Denies: nausea, vomiting, diarrhea, constipation Genitourinary: Reports: discharge. Denies: dysuria, frequency, hematuria Musculoskeletal: Denies: back pain Skin: Denies: rash Neurological: Denies: headache, weakness Past Medical History Past Medical History: Asthma, GERD/Reflux, Thyroid Disorder Additional Past Medical History / Comment(s): occipital neuralgia, vertigo History of Any Multi-Drug Resistant Organisms: None Reported Past Surgical History: No Surgical Hx Reported Past Anesthesia/Blood Transfusion Reactions: No Reported Reaction Past Psychological History: Anxiety, Depression Smoking Status: Never smoker Past Alcohol Use History: Rare Past Drug Use History: None Reported - Past Family History Mother Family Medical History: Thyroid Disorder Additional Family Medical History / Comment(s): Graves disease Father Family Medical History: Hypertension Additional Family Medical History / Comment(s): Bipolar depression General Exam Limitations: no limitations General appearance: alert, in no apparent distress Head exam: Present: atraumatic, normocephalic Eye exam: Present: normal appearance. Absent: scleral icterus, conjunctival injection ENT exam: Present: normal oropharynx Neck exam: Present: normal inspection Respiratory exam: Present: normal lung sounds bilaterally. Absent: respiratory distress, wheezes, rales, rhonchi, stridor, accessory muscle use Cardiovascular Exam: Present: regular rate, normal rhythm, normal heart sounds. Absent: systolic murmur, diastolic murmur, rubs, gallop GI/Abdominal exam: Present: soft. Absent: distended, tenderness, guarding, rebound, rigid, mass External exam: Present: other (Patient declined gynecologic exam) Extremities exam: Present: normal inspection, normal capillary refill. Absent: pedal edema, calf tenderness Back exam: Present: normal inspection. Absent: CVA tenderness (R), CVA tenderness (L) Neurological exam: Present: alert Skin exam: Present: warm, dry, intact, normal color. Absent: rash Course Vital Signs 08/27/24 08/27/24 19:21 23:50 Temperature 97.8 F Pulse Rate 76 90 Respiratory 18 18 Rate Blood Pressure 132/83 131/70 O2 Sat by Pulse 100 99 Oximetry Medical Decision Making - Medical Decision Making Was pt. sent in by a medical professional or institution (, PA, GENOMICS SCIENTIST, urgent care, hospital, or fdc...) When possible be specific @ -[No] Did you speak to anyone other than the patient for history (EMS, parent, family, police, friend...)? What history was obtained from this source @ -[No] Did you review nursing and triage notes (agree or disagree)? Why? @ -[I reviewed and agree with nursing and triage notes] Were old charts reviewed (outside hosp., previous admission, EMS record, old EKG, old radiological studies, urgent care reports/EKG's, fdc records)? Report findings @ -[No old charts were reviewed] Differential Diagnosis (chest pain, altered mental status, abdominal pain women, abdominal pain men, vaginal bleeding, weakness, fever, dyspnea, syncope, heada theodore, dizziness, GI bleed, back pain, seizure, CVA, palpatations, mental health, musculoskeletal)? @ -[Differential Vaginal Bleeding: Spontaneous , threatened , molar , ectopic , bloody show, incompetent cervix, abruptioplacenta, placenta previa, uterine rupture, dysfunctional uterine bleeding, hemorrhage, uterine fibroids, this is not meant to be an all-inclusive list. EKG interpreted by me (3pts min.). @ -[As above] X-rays interpreted by me (1pt min.). @ -[None done] CT interpreted by me (1pt min.). @ -[None done] U/S interpreted by me (1pt. min.). @ -[None done] What testing was considered but not performed or refused? (CT, X-rays, U/S, labs)? Why? @ -[None] What meds were considered but not given or refused? Why? @ -[None] Did you discuss the management of the patient with other professionals (professionals i.e. , PA, GENOMICS SCIENTIST, lab, RT, psych nurse, social work associate, sales project manager, teacher, eeo officer, caser in)? Give summary @ -[No] Was smoking cessation discussed for >3mins.? @ -[No] Was critical care preformed (if so, how long)? @ -[No] Were there social determinants of health that impacted care today? How? (Homelessness, low income, unemployed, alcoholism, drug addiction, transportation, low edu. Level, literacy, decrease access to med. care, care home, rehab)? @ -[No] Was there de-escalation of care discussed even if they declined (Discuss DNR or withdrawal of care, Hospice)? DNR status @ -[No] What co-morbidities impacted this encounter? (DM, HTN, Smoking, COPD, CAD, Cancer, CVA, ARF, Chemo, Hep., AIDS, mental health diagnosis, sleep apnea, morbid obesity)? @ -[None] Was patient admitted / discharged? Hospital course, mention meds given and route, prescriptions, significant lab abnormalities, going to OR and other pertinent info. @ -[Patient is a 23-year-old woman presenting in early with brief suprapubic pain that had resolved and vaginal bleeding. The patient had ultrasound that revealed early but no definite activity. Discussed findings with the patient and that it probably represents demise versus threatened miscarriage, and that she must have repeat hCG and ultraso und. She will follow-up with her basket bottom machine operator or return here if there is worsening or any new symptoms. Patient states that she has blood type positive, has not required RhoGAM with previous miscarriage/delivery Undiagnosed new problem with uncertain prognosis? @ -[No] Drug Therapy requiring intensive monitoring for toxicity (Heparin, Nitro, Insulin, Cardizem)? @ -[No] Were any procedures done? @ -[No] Diagnosis/symptom? @ -Threatened miscarriage versus demise Acute, or Chronic, or Acute on Chronic? @ -[Acute Uncomplicated (without systemic symptoms) or Complicated (systemic symptoms)? @ -[Uncomplicated Side effects of treatment? @ -[No] Exacerbation, Progression, or Severe Exacerbation? @ -[No] Poses a threat to life or bodily function? How? (Chest pain, [place], [place], pneumonia, PE, COPD, DKA, ARF, appy, cholecystitis, CVA, Diverticulitis, Homicidal, Suicidal, threat to staff... and all critical care pts) @ -[No] All treatments are based on ideal body weight as in ED triage - Lab Data Lab Results 08/27/24 Range/Units 19:49 Urine Color Light Yellow Urine Appearance Clear (Clear) Urine pH 6.0 (5.0-8.0) Ur Specific [place] 1.020 (1.001-1.035) Urine Protein Negative (Negative) Urine Glucose (UA) Negative (Negative) Urine Ketones 1+ H (Negative) Urine Blood Trace H (Negative) Urine Nitrite Negative (Negative) Urine Bilirubin Negative (Negative) Urine Urobilinogen <2.0 (<2.0) mg/dL Ur Leukocyte Esterase Negative (Negative) Urine RBC <1 (0-5) /hpf Urine WBC 2 (0-5) /hpf Ur Squamous Epith Cells 1 (0-4) /hpf Urine Mucus Rare H (None) /hpf Disposition Clinical Impression: Threatened miscarriage Disposition: HOME SELF-CARE Condition: Good Instructions (If sedation given, give patient instructions): Threatened Miscarriage (ED) Is patient prescribed a controlled substance at d/c from ED?: No Referrals: Ricardo Mayen MD [Primary Care Provider] - 1-2 days
[2024-08-27 23:50] VITALS: BP 131/70; PULSE 90
== END 2024-08-27 23:50 | disposition home or self-care (01) ==
LOC: EC 18:44
DX: O20.0 Threatened abortion (principal); O26.851 Spotting complicating pregnancy, first trimester; Z88.0 Allergy status to penicillin; Z88.8 Allergy status to other drugs, medicaments and biological substances; Z3A.08 8 weeks gestation of pregnancy
CPT/HCPCS: 76801; 81001; 99284

== ENCOUNTER → 2024-12-28 | Outpatient (CLI) | payer OTHER ==
--- NOTE | 2024-12-28 09:32 | US ---
EXAMINATION TYPE: US abdomen complete DATE OF EXAM: 12/28/2024 COMPARISON: 08/27/2024 CLINICAL INDICATION: Female, 24 years old with history of R10.11 R UP QUAD PAIN; Pain TECHNIQUE: Grayscale and color Doppler imaging of the abdomen was performed. FINDINGS: EXAM MEASUREMENTS: Liver Length: 17.3 cm Gallbladder Wall: 0.2 cm CBD: 0.2 cm, color Doppler imaging was utilized to isolate the common bile duct for measurement. Spleen: 12.1 cm Right Kidney: 11.0 x 3.2 x 5.2 cm Left Kidney: 11.7 x 4.2 x 5.0 cm Pancreas: wnl Liver: wnl, no dilated ducts, masses or cysts. Gallbladder: wnl Evidence for sonographic Vargas's sign: No CBD: wnl Spleen: wnl Right Kidney: wnl, No hydronephrosis, calculi or masses seen Left Kidney: wnl, No hydronephrosis, calculi or masses seen Upper IVC: wnl Abd Aorta: wnl IMPRESSION: 1. Borderline sized liver at 17.3 cm. 2. Otherwise, unremarkable sonographic examination of the abdomen. [facility], Workstation: [email or web address] [id number], 12/28/2024 9:29 AM
== END | disposition home or self-care (01) ==
LOC: RADUSWWP 07:05
PROVIDERS: ATTEND Family Medicine
DX: R10.11 Right upper quadrant pain (principal)
CPT/HCPCS: 76700